=== PATIENT | female | born 1960 | race Caucasian/White ===

== ENCOUNTER → 2016-08-29 | Outpatient (CLI) | payer OTHER ==
--- NOTE | 2016-08-29 15:52 | REPMRS ---
Patient History The patient states she has not had a clinical breast exam in over a year. Patient is postmenopausal. Family history of colorectal cancer in mother. Digital Woman Screen Mammo: August 29, 2016 - Exam #: [id number] Bilateral CC and MLO view(s) were taken. Technologist: Amanda Mckeon, Technologist Prior study comparison: October 31, 2012, digital bilateral screening mammo, performed at . October 14, 2010, digital bilateral screening mammo, performed at . FINDINGS: The breast tissue is heterogeneously dense. This may lower the sensitivity of mammography. There is a moderate amount of heterogeneously dense fibroglandular tissue which is fairly symmetric. There is no interval development of dominant mass, architectural distortion, or clustered microcalcification typical of malignancy. There has been no change in the appearance of the mammogram from the prior studies. ASSESSMENT: BI-RADS/ACR category 1 mammogram. Negative. Recommendation Routine screening mammogram of both breasts in 1 year (for women over age 40). This mammogram was interpreted with the aid of an FDA-approved computer-aided dectection system. Electronically Signed By: Andrews Bazan MD 08/29/16 [id number]
--- NOTE | 2016-08-31 10:01 | DEXA ---
AP SPINE L1 - L4 0.783 -3.3 -1.7 LT FEMUR TOTAL Fracture. RT FEMUR TOTAL 0.641 -2.9 -1.7 TOTAL BODY TOTAL OTHER DUAL FEMUR FRAX* ASSESSMENT Risk factors: History of left femur fracture, tobacco use. 10 year probability of fracture Major osteoporotic fracture 22 % Hip fracture 12.2 % COMMENTS: There is osteoporosis of the spine. There is osteoporosis of the right hip. Mild lumbar scoliosis. FOLLOW-UP: Recommendation for the next bone density exam: 2 years. BAILEY
== END ==
LOC: M WHC 13:08
PROVIDERS: ATTEND Internal Medicine
DX: Z12.31 Encounter for screening mammogram for malignant neoplasm of breast (principal); Z13.820 Encounter for screening for osteoporosis; M81.0 Age-related osteoporosis without current pathological fracture; M41.9 Scoliosis, unspecified; Z78.0 Asymptomatic menopausal state; Z80.0 Family history of malignant neoplasm of digestive organs
CPT/HCPCS: 77080; G0202

== ENCOUNTER → 2018-04-17 | Outpatient (REF) | payer OTHER ==
[2018-04-19 00:06] LABS: ANA (HEP2) Positive (.); SSA SJOGRENS A <0.2 AI (0.0-0.9); SSB SJOGRENS B 5.8 AI (0.0-0.9)
== END ==
LOC: M SFHCPLAZ 09:10
PROVIDERS: ATTEND Internal Medicine Rheumatology
DX: R76.8 Other specified abnormal immunological findings in serum (principal); M25.50 Pain in unspecified joint

== ENCOUNTER 2018-06-30 07:36 | Inpatient (IN) | payer OTHER ==
[~2018-06-30] VITALS: Ht 149.9 cm; Wt 36.8 kg
[2018-06-30] MEDS ORDERED: PROAAER10 INH (07:44)
[2018-06-30] MEDS ORDERED: IBAN150T6 (07:44)
[2018-06-30] MEDS ORDERED: SERT-138 PO (07:44)
[2018-06-30] MEDS ORDERED: PRED20TA PO (07:44)
[2018-06-30] MEDS ORDERED: DOXY-346 PO (07:44)
[2018-06-30 08:28] LABS: BASO % 0.1 % (0.0-1.0); HEMATOCRIT 45.4 % (36.0-47.0); HEMOGLOBIN 14.8 g/dl (12.0-15.5); LYMPH # 1.2 10^3/uL (1.5-4.5); LYMPH % 11.3 % (24.0-44.0); MEAN CORPUSCULAR HEMOGLOBIN 29.4 pg (27.0-33.0); MEAN CORPUSCULAR HGB CONC 32.6 g/dl (32.0-36.5); MEAN CORPUSCULAR VOLUME 90.3 fl (80.0-96.0); NEUTROPHILS % 78.1 % (36.0-66.0); PLATELET COUNT, AUTOMATED 234 10^3/uL (150-450); RED BLOOD COUNT 5.03 10^6/uL (4.00-5.40); WHITE BLOOD COUNT 10.2 10^3/uL (4.0-10.0)
[2018-06-30] MEDS: IPRATROPIUM 0.5MG/ALBUTEROL 2.5MG INH SOL UD 3ML (DUONEB)(J7620) NEB PRN (08:46)
[2018-06-30 08:50] LABS: ALBUMIN 3.5 GM/DL (3.2-5.2); ALT/SGPT 13 U/L (12-78); BILIRUBIN,DIRECT < 0.1 MG/DL (0.0-0.2); BILIRUBIN,TOTAL 0.4 MG/DL (0.2-1.0); BLOOD UREA NITROGEN 10 MG/DL (7-18); CALCIUM LEVEL 8.6 MG/DL (8.5-10.1); CARBON DIOXIDE LEVEL 29 MEQ/L (21-32); CHLORIDE LEVEL 103 MEQ/L (98-107); CPK CREATINE PHOSPHOKINASE 82 U/L (26-192); CREATININE FOR GFR 0.54 MG/DL (0.55-1.30); GLOMERULAR FILTRATION RATE > 60.0 (>51); GLUCOSE, FASTING 114 MG/DL (70-100); LIPASE 93 U/L (73-393); MB/CK RELATIVE INDEX 2.68 (< OR =4); POTASSIUM SERUM 3.3 MEQ/L (3.5-5.1); SODIUM LEVEL 140 MEQ/L (136-145); TOTAL PROTEIN 7.2 GM/DL (6.4-8.2); TROPONIN I < 0.02 NG/ML (< 0.10)
[2018-06-30 08:51] LABS: INFLUENZA A AMPLIFICATION NEGATIVE (NEGATIVE); INFLUENZA B AMPLIFICATION NEGATIVE (NEGATIVE)
--- NOTE | 2018-06-30 08:57 | REP ---
Clinical: Shortness of breath. Technique: AP and lateral. Comparison: 11/07/2011. Findings: Chronic COPD/emphysematous disease with bibasilar scarring and interstitial changes again appreciated. No acute consolidation, effusion, or pneumothorax. Mediastinum and cardiac silhouette normal. Skeletal structures stable. Impression: COPD and chronic changes. No acute cardiopulmonary process appreciated. Electronically Signed by Tahir Flores MD 06/30/2018 08:49 A
[2018-06-30] MEDS ORDERED: NS 500 ML IV ONE (09:15)
[2018-06-30] MEDS ORDERED: methylPREDNISolone INJ 125 MG/2 ML VIAL (J2930) IV ONE (09:30)
[2018-06-30] MEDS ORDERED: IPRATROPIUM 0.5MG/ALBUTEROL 2.5MG INH SOL UD 3ML (DUONEB)(J7620) NEB PRN (10:30)
[2018-06-30] MEDS ORDERED: MOM 30ML SUSPENSION UDC PO PRN (10:30)
--- NOTE | 2018-06-30 10:40 | HPEPDOC ---
General Date of Admission Primary Care Physician: LORIE COOPER DO Attending Physician: NICO GARCIA MD Chief Complaint The patient is a 57-year-old female admitted with a reason for visit of SOB. Exam Limitations: No limitations Timing/Duration: Day(s) (2 days) Severity: Severe Associated Symptoms: Cough, Shortness of breath History of Present Illness This 57 years old white female with past medical history of COPD, active smoker, history of anxiety and depression, presented with increasing shortness of breath since last 2 days. Patient was seen and evaluated in the ER she was given 2 nebulizer treatment with some relief and will recall to admit patient for observation Patient feels slightly better but still has the shortness of breath. Patient stopped smoking about 2 days ago No chest pain, nausea, vomiting, diarrhea or syncopal symptoms Home Medications Scheduled (Doxycycline) 100 Mg Tab, 100 MG PO BID, (Reported) FILLED 06/29/18 FOR 10 DAYS Prednisone (Prednisone) 20 Mg Tab, 20 MG PO BID, (Reported) FILLED 06/29/18 FOR 9 DAYS Sertraline HCl (Sertraline HCl) 100 Mg Tab, 100 MG PO DAILY, (Reported) Scheduled PRN Albuterol Sulfate (Proair Hfa) 108 Mcg/Act Aer, 2 PUFF INH Q4H PRN for SHORTNESS OF BREATH, (Reported) Allergies Coded Allergies: acetaminophen (Verified Allergy, Unknown, 06/30/18) bupropion (Verified Allergy, Unknown, 06/30/18) codeine (Verified Allergy, Unknown, 06/30/18) hydrocodone (Verified Allergy, Unknown, 06/30/18) Past Medical History Medical History COPD, anxiety and depression Surgical History None Family History Significant Family History: COPD Social History * Smoker: current smoker, greater than 1 pack/day, cigarettes Alcohol: Denies Drugs: denies Review of Systems Constitutional: Denies: Chills, Fever, Night Sweats Eyes: Denies: Pain, Vision change ENT: Denies: Head Aches, Ear Pain, Dysphagia Skin: Denies: Rash, Lesions, Breakdown Pulmonary: Reports: Dyspnea, Cough Cardiovascular: Denies: Chest Pain, Palpitations, Orthopnea, Paroxysmal Noc. Dyspnea, Lt Headedness Gastrointestinal: Denies: Nausea, Vomiting, Abdominal Pain, Diarrhea Genitourinary: Denies: Dysuria, Frequency, Incontinence, Retention Hematologic: Denies: Bruising, Bleeding Excessively Musculoskeletal: Denies: Neck Pain, Back Pain, Joint Pain, Muscle Pain, Spasms Neurological: Denies: Weakness, Numbness, Change in speech, Confusion Psych: Reports: Mood Normal; Denies: Depression, Memory Issues Physical Examination General Exam: Positive: Alert, No Acute Distress Eye Exam: Positive: PERRLA, Conjunctiva & lids normal, EOMI; Negative: Sclera icteric ENT Exam: Positive: Atraumatic, Mucous membr. moist/pink, Pharynx Normal Neck Exam: Positive: Supple; Negative: JVD, thyromegaly Chest Exam: Positive: Wheezing Heart Exam: Positive: Rate Normal, Regular Rhythm, Normal S1, Normal S2; Negative: Murmurs, Rubs Telemetry: Positive: No significant arrhythmia Abdomen Exam: Positive: Normal bowel sounds, Soft; Negative: Tenderness, Hepatospenomegaly Extremity Exam: Positive: Normal pulses; Negative: Clubbing, Cyanosis, Edema Skin Exam: Positive: Nl turgor and temperature; Negative: Breakdown, Lesion Neuro Exam: Positive: Normal Gait, Normal Speech, Cranial Nerves 3-12 NL, Reflexes 2+ Psych Exam: Positive: Mental status NL, Mood NL, Oriented x 3 Vital Signs Vital Signs Date Time Temp Pulse Resp B/P (MAP) Pulse Ox O2 Delivery O2 Flow Rate FiO2 06/30/18 08:20 06/30/18 08:18 Room Air 06/30/18 07:46 90 06/30/18 07:36 98.2 91 20 Laboratory Data Labs 24H Laboratory Tests 2 06/30/18 08:10: Immature Granulocyte % (Auto) 0.5, White Blood Count 10.2H, Red Blood Count 5.03, Hemoglobin 14.8, Hematocrit 45.4, Mean Corpuscular Volume 90.3, Mean Corpuscular Hemoglobin 29.4, Mean Corpuscular Hemoglobin Concent 32.6, Red Cell Distribution Width 13.7, Platelet Count 234, Neutrophils (%) (Auto) 78.1H, Lymphocytes (%) (Auto) 11.3L, Monocytes (%) (Auto) 10.0H, Eosinophils (%) (Auto) 0.0, Basophils (%) (Auto) 0.1, Neutrophils # (Auto) 8.0H, Lymphocytes # (Auto) 1.2L, Monocytes # (Auto) 1.0H, Eosinophils # (Auto) 0.0, Basophils # (Auto) 0.0, Nucleated Red Blood Cells % (auto) 0.0, Anion Gap 8, Glomerular Filtration Rate > 60.0, Calcium Level 8.6, Aspartate Amino Transf (AST/SGOT) 12, Alanine Aminotransferase (ALT/SGPT) 13, Alkaline Phosphatase 70, Total Bilirubin 0.4, Direct Bilirubin < 0.1, Total Creatine Kinase 82, Creatine Kinase MB 2.0, Creatine Kinase MB Relative Index 2.68, Troponin I < 0.02, Total Protein 7.2, Albumin 3.5, Albumin/Globulin Ratio 0.95L, Lipase 93, Influenza Type A (RT-PCR) NEGATIVE, Influenza Type B (RT-PCR) NEGATIVE, Respiratory Syncytial Virus (RT-PCR NEGATIVE CBC/BMP Laboratory Tests 06/30/18 08:10 Red Blood Count 5.03, Mean Corpuscular Volume 90.3, Mean Corpuscular Hemoglobin 29.4, Mean Corpuscular Hemoglobin Concent 32.6, Red Cell Distribution Width 13.7, Neutrophils (%) (Auto) 78.1 H, Lymphocytes (%) (Auto) 11.3 L, Monocytes (%) (Auto) 10.0 H, Eosinophils (%) (Auto) 0.0, Basophils (%) (Auto) 0.1, Neutrophils # (Auto) 8.0 H, Lymphocytes # (Auto) 1.2 L, Monocytes # (Auto) 1.0 H, Eosinophils # (Auto) 0.0, Basophils # (Auto) 0.0 Microbiology Microbiology 06/30/18 Blood Culture, Received Pending Problems (1) COPD exacerbation Status: Acute Response to Treatment: Improving Problem Text: 57 years old white female with past medical history History of COPD, anxiety disorder and depression, admitted for observation secondary to exacerbation of COPD Admit patient to med unit for observation Patient did receive 1 dose of IV steroids and 2 nebulizer treatments in ED Start Solu-Medrol 40 mg IV every 8 hours Start nebulizer DuoNeb every 4 hours and every 2 hours as needed Will also give him Zithromax 500 mg by mouth daily for 3 days for possible acute bronchitis Extensive smoking cessation counseling was done and patient understands very well and understands all the risks if she continues to smoke Continue home medications DVT prophylaxis with Lovenox Possible DC name of, clinically stable Plan / VTE VTE Prophylaxis Ordered?: Yes JOSE,NICO MD Jun 30, 2018 10:40
[2018-06-30] MEDS: IPRATROPIUM 0.5MG/ALBUTEROL 2.5MG INH SOL UD 3ML (DUONEB)(J7620) NEB SCH ×2 (11:23→20:00)
[2018-06-30 13:00] VITALS: BP 136/82
[2018-06-30] MEDS: methylPREDNISolone INJ 40 MG/1 ML VIAL (J2920) IV SCH (16:33)
[2018-06-30] MEDS: AZITHROMYCIN 250 MG TAB PO SCH (16:34)
[2018-06-30] MEDS: ENOXAPARIN 40 MG/0.4 ML SYRINGE (J1650) SC SCH (16:34)
[2018-06-30] MEDS: SERTRALINE 100 MG TAB PO SCH (16:34)
[2018-06-30] MEDS ORDERED: ONDANSETRON 4MG/2ML VIAL (J2405) IV PRN (18:45)
[2018-06-30] MEDS: ACETAMINOPHEN TAB 650MG DOSE (2X325MG) PO PRN (19:00)
[2018-06-30 22:00] VITALS: BP 106/59
[2018-07-01] MEDS: methylPREDNISolone INJ 40 MG/1 ML VIAL (J2920) IV SCH ×3 (00:44→16:33)
[2018-07-01] MEDS: IPRATROPIUM 0.5MG/ALBUTEROL 2.5MG INH SOL UD 3ML (DUONEB)(J7620) NEB SCH ×8 (04:42→23:34)
[2018-07-01 06:00] VITALS: BP 120/72
[2018-07-01 06:03] LABS: HEMATOCRIT 45.5 % (36.0-47.0); HEMOGLOBIN 14.2 g/dl (12.0-15.5); MEAN CORPUSCULAR HEMOGLOBIN 28.5 pg (27.0-33.0); MEAN CORPUSCULAR HGB CONC 31.2 g/dl (32.0-36.5); MEAN CORPUSCULAR VOLUME 91.4 fl (80.0-96.0); PLATELET COUNT, AUTOMATED 240 10^3/uL (150-450); RED BLOOD COUNT 4.98 10^6/uL (4.00-5.40); WHITE BLOOD COUNT 8.4 10^3/uL (4.0-10.0)
[2018-07-01 06:30] LABS: ALBUMIN 3.4 GM/DL (3.2-5.2); ALT/SGPT 17 U/L (12-78); BILIRUBIN,TOTAL 0.3 MG/DL (0.2-1.0); BLOOD UREA NITROGEN 17 MG/DL (7-18); CALCIUM LEVEL 8.4 MG/DL (8.5-10.1); CARBON DIOXIDE LEVEL 30 MEQ/L (21-32); CHLORIDE LEVEL 106 MEQ/L (98-107); CREATININE FOR GFR 0.44 MG/DL (0.55-1.30); GLOMERULAR FILTRATION RATE > 60.0 (>51); GLUCOSE, FASTING 124 MG/DL (70-100); MAGNESIUM LEVEL 2.3 MG/DL (1.8-2.4); POTASSIUM SERUM 3.8 MEQ/L (3.5-5.1); SODIUM LEVEL 142 MEQ/L (136-145); TOTAL PROTEIN 6.4 GM/DL (6.4-8.2)
[2018-07-01] MEDS: ACETAMINOPHEN TAB 650MG DOSE (2X325MG) PO PRN (10:02)
[2018-07-01] MEDS: SERTRALINE 100 MG TAB PO SCH (10:02)
[2018-07-01] MEDS: AZITHROMYCIN 250 MG TAB PO SCH (10:02)
[2018-07-01] MEDS: ENOXAPARIN 40 MG/0.4 ML SYRINGE (J1650) SC SCH (10:03)
--- NOTE | 2018-07-01 11:43 | REP ---
Clinical: Shortness of breath. Congestion. Comparison: 06/30/2018, 11/07/2011. Findings: Advanced COPD/emphysematous changes are appreciated. No acute consolidation, effusion, or pneumothorax. Mediastinum and cardiac silhouette are normal. Skeletal structures are intact. Impression: Advanced COPD and emphysematous changes appear stable. Electronically Signed by Tahir Flores MD 07/01/2018 11:35 A
[2018-07-01 12:25] LABS: ABG BASE EXCESS 1.3 (-2.0-2.0); ABG HCO3 27.5 MEQ/L (22.0-26.0); ABG O2 SATURATION 97.3 % (95.0-99.0); ABG PARTIAL PRESSURE CO2 49.5 mmHg (35.0-45.0); ABG STANDARD HCO3 25.6 MEQ/L (22.0-26.0); ABG pH (ARTERIAL) 7.363 UNITS (7.350-7.450)
[2018-07-01] MEDS: LevoFLOXacin IV 750 MG in APPROPRIATE DILUENT 1 EA IV SCH (12:53)
--- NOTE | 2018-07-01 13:36 | IPNPDOC ---
Date Seen The patient was seen on 07/01/18. Progress Note SUBJECTIVE: This 57 years old white female with past medical history of COPD, active smoker, history of anxiety and depression, presented with increasing shortness of breath since last 2 days. She was admitted for COPD exacerbation. When I saw her this morning, she was very sob, using abd muscles, on 2NC but saturating in the 90s, coughing but unable to expectorate, said she is feeling feverish with intermittent chills, however rectal temp was wnl. She received azithromycin, and iv steroid this morning already. OBJECTIVE PHYSICAL EXAMINATION: VITAL SIGNS: Please see below. Physical exam Gen: cachetic , with mild- mod resp distress, HEENT: normocephalic, atraumatic, no discharge from ears or nose, no oropharyngeal erythema or exudate, neck is supple, no lymphadenopathy, trachea midline CVS: RRR, normal S1n S2, no murmur, rubs, or gallops, no edema, no jvd Resp: LCTAB, no rhonchi, b/l diffuse wheezes, no crackles Abd : soft nontender, normal bowel sounds, no rebound tenderness or guarding MSK: no swelling, full range of motion, strength 5/5 Neuro: AOAx3, no confusion, no focal deficit Psych: normal mood and affect, good judgment LABORATORY DATA, IMAGING STUDIES, MICROBIOLOGY: Please see below.- reviewed ASSESSMENT AND PLAN: copd exacerbation 2/2 parainfluenza virus with possible underlying pna resp panel positive for parainflunzxa 3 - contact precautions ordered sputum gs and cx growing some bacteria - will f/u repeat cxr - no inflitrate or consolidation, but if patient c/w to be very sob will get ct chest c/w Solu-Medrol 40 mg IV every 8 hours c/w nebulizer DuoNeb every 4 hours standing and every 2 hours as needed dc zithromax 500 mg and start levaquin 750mg daily for 7 days - day 1 Extensive smoking cessation counseling was done and patient understands very well and understands all the risks if she continues to smoke restart advair abg - shows mild co2 retention and adequate oxygenation on 2L NC no need for lasix, patient looks dry and lungs without crackles troponin and ckmb are negative will monitor patient for signs of resp fatigue and consider bipap for tachypnea Depression Continue home medications DVT prophylaxis with Lovenox GI ppx patient wants to be dnr/dni - DISPOSITION: guarded VS, I&O, 24H, [place] Vital Signs/I&O Vital Signs Date Time Temp Pulse Resp B/P (MAP) Pulse Ox O2 Delivery O2 Flow Rate FiO2 07/01/18 06:00 97.8 73 18 120/72 (88) 95 2.0 06/30/18 12:44 Nasal Cannula I&O- Last 24 Hours up to 6 AM 07/01/18 06:00 Intake Total 620 ml Output Total 0 ml Balance 620 ml Laboratory Data 24H LABS Laboratory Tests 2 07/01/18 05:44: Nucleated Red Blood Cells % (auto) 0.0, Anion Gap 6L, Glomerular Filtration Rate > 60.0, Blood Urea Nitrogen 17#, Creatinine 0.44L, Sodium Level 142, Potassium Level 3.8, Chloride Level 106, Carbon Dioxide Level 30, Calcium Level 8.4L, Aspartate Amino Transf (AST/SGOT) 20, Alanine Aminotransferase (ALT/SGPT) 17, Alkaline Phosphatase 64, Total Bilirubin 0.3, Total Protein 6.4, Albumin 3.4, Magnesium Level 2.3, Albumin/Globulin Ratio 1.13 07/01/18 12:12: Blood Gas Bicarbonate Standard 25.6, Arterial Blood pH 7.363, Arterial Blood Partial Pressure CO2 49.5H, Arterial Blood Partial Pressure O2 91.0, Arterial Blood Total CO2 29.0, Arterial Blood HCO3 27.5H, Arterial Blood Base Excess 1.3, Arterial Blood Oxygen Saturation 97.3 CBC/BMP Laboratory Tests 07/01/18 05:44 Red Blood Count 4.98, Mean Corpuscular Volume 91.4, Mean Corpuscular Hemoglobin 28.5, Mean Corpuscular Hemoglobin Concent 31.2 L, Red Cell Distribution Width 13.7, Calcium Level 8.4 L, Aspartate Amino Transf (AST/SGOT) 20, Alanine Aminotransferase (ALT/SGPT) 17, Alkaline Phosphatase 64, Total Bilirubin 0.3, Total Protein 6.4, Albumin 3.4 Microbiology Microbiology 06/30/18 Blood Culture - Preliminary, Resulted No growth after 24 hours . All specim... 07/01/18 Respiratory Virus Panel (PCR) (JUDY) - Final, Complete Parainfluenza 3 (Piv3) 07/01/18 Gram Stain - Final, Resulted 07/01/18 Sputum Culture, Resulted Pending PREETI BETHEA MD Jul 01, 2018 13:36
[2018-07-01 22:00] VITALS: BP 117/65
[2018-07-02] MEDS: methylPREDNISolone INJ 40 MG/1 ML VIAL (J2920) IV SCH ×3 (00:26→16:08)
[2018-07-02] MEDS: IPRATROPIUM 0.5MG/ALBUTEROL 2.5MG INH SOL UD 3ML (DUONEB)(J7620) NEB SCH ×6 (04:00→23:34)
--- NOTE | 2018-07-02 05:34 | ECGEPIP ---
Stationary ECG Study [facility] - ED Test Date: 2018-06-30 Pat Name: RUBÉN DOMINGUEZ Department: Room: - Gender: F Distribution Clerk: : 1960 Requested By: HANNAH POWELL Order Number: [id number] Reading MD: Garett Soto Measurements Intervals [place] Rate: 79 P: -31 SC: 95 QRS: 86 QRSD: 122 T: 33 QT: 410 QTc: 473 Interpretive Statements SINUS RHYTHM WITH SHORT SC INTERVAL RIGHT AXIS DEVIATION RIGHT BUNDLE BRANCH BLOCK SIMILAR TO 11/07/11 Electronically Signed On 07-02-2018 5:33:52 EDT by Garett Soto
[2018-07-02 06:00] VITALS: BP 114/62
[2018-07-02 06:18] LABS: HEMATOCRIT 44.9 % (36.0-47.0); HEMOGLOBIN 14.2 g/dl (12.0-15.5); MEAN CORPUSCULAR HEMOGLOBIN 28.7 pg (27.0-33.0); MEAN CORPUSCULAR HGB CONC 31.6 g/dl (32.0-36.5); MEAN CORPUSCULAR VOLUME 90.9 fl (80.0-96.0); PLATELET COUNT, AUTOMATED 247 10^3/uL (150-450); RED BLOOD COUNT 4.94 10^6/uL (4.00-5.40)
[2018-07-02 06:41] LABS: BLOOD UREA NITROGEN 17 MG/DL (7-18); CALCIUM LEVEL 8.5 MG/DL (8.5-10.1); CARBON DIOXIDE LEVEL 33 MEQ/L (21-32); CHLORIDE LEVEL 104 MEQ/L (98-107); CREATININE FOR GFR 0.52 MG/DL (0.55-1.30); GLOMERULAR FILTRATION RATE > 60.0 (>51); GLUCOSE, FASTING 125 MG/DL (70-100); MAGNESIUM LEVEL 2.2 MG/DL (1.8-2.4); PHOSPHORUS LEVEL 3.2 MG/DL (2.5-4.9); POTASSIUM SERUM 3.4 MEQ/L (3.5-5.1); SODIUM LEVEL 141 MEQ/L (136-145)
[2018-07-02] MEDS ORDERED: POTASSIUM CHLORIDE 10 MEQ SR TABLET PO ONE (08:00)
[2018-07-02] MEDS: SERTRALINE 100 MG TAB PO SCH (08:44)
[2018-07-02] MEDS: ENOXAPARIN 40 MG/0.4 ML SYRINGE (J1650) SC SCH (08:45)
[2018-07-02] MEDS: ACETAMINOPHEN TAB 650MG DOSE (2X325MG) PO PRN (08:45)
[2018-07-02] MEDS: LevoFLOXacin IV 750 MG in APPROPRIATE DILUENT 1 EA IV SCH (12:41)
[2018-07-02 14:00] VITALS: BP 108/77
--- NOTE | 2018-07-02 17:57 | IPNPDOC ---
Date Seen The patient was seen on 07/02/18. Progress Note SUBJECTIVE: This 57 years old white female with past medical history of COPD, active smoker, history of anxiety and depression, presented with increasing shortness of breath since last 2 days. She was admitted for COPD exacerbation. She was initially started on azithromycin , but when I saw her yesterday she had increased work of breathing and diffused wheezing. Azithromycin was dc'ed and she was started on levaquin on 07/01, continued on iv methylpred 40mg q8h, and duoneb q4h prn, advair bid and supplemental oxygen. She also wanted to be dnr/dni, but with family at bedside and seemed surprised at her decision, I asked her to speak with them before making a decision. Her respiratory panel was positive for parainfluenza virus 3 an abg showed mild mild acute co2 retention. Reassessing her today 07/02, she looks a lot better. She denied any chest pain, said her cough and sob is much better and she now ambulating to the bathroom, but has sob more with exertion. Today patient and her agrees that she will be full code. I explained to them the importance of a HCP and his/her role. Patient expressed that she would like to be full code, but would not want to remain on a vent if she will not get better. OBJECTIVE PHYSICAL EXAMINATION: VITAL SIGNS: Please see below. Gen: cachetic , no resp distress, HEENT: normocephalic, atraumatic, no discharge from ears or nose, no oropharyngeal erythema or exudate, neck is supple, no lymphadenopathy, trachea midline CVS: RRR, normal S1n S2, no murmur, rubs, or gallops, no edema, no jvd Resp: LCTAB, no rhonchi, wheezes, no crackles Abd : soft nontender, normal bowel sounds, no rebound tenderness or guarding MSK: no swelling, full range of motion, strength 5/5 Neuro: AOAx3, no confusion, no focal deficit Psych: normal mood and affect, good judgment LABORATORY DATA, IMAGING STUDIES, MICROBIOLOGY: Please see below.- reviewed ASSESSMENT AND PLAN: copd exacerbation 2/2 parainfluenza virus 3 with possible underlying pna resp panel positive for parainflunzxa 3 - contact precautions ordered sputum gs and cx growing some bacteria - will f/u repeat cxr - no inflitrate or consolidation, taper Solu-Medrol 40 mg IV every 8 hours - to q12h c/w nebulizer DuoNeb every 4 hours standing and every 2 hours as needed - will de-escalate tomorrow c/w levaquin 750mg daily - day 2/7 days continues to encourage and reinforce the importance of smoking cessation and patient understands very well and understands all the risks if she continues to smoke c/w advair abg - shows mild co2 retention and adequate oxygenation on 2L NC no need for lasix, patient looks dry and lungs without crackles troponin and ckmb are negative Depression Continue home medications DVT prophylaxis with Lovenox GI ppx DISPOSITION: guarded VS, I&O, 24H, [place] Vital Signs/I&O Vital Signs Date Time Temp Pulse Resp B/P (MAP) Pulse Ox O2 Delivery O2 Flow Rate FiO2 07/02/18 14:00 97.8 100 18 108/77 (87) 95 2.0 06/30/18 12:44 Nasal Cannula I&O- Last 24 Hours up to 6 AM 07/02/18 05:59 Intake Total 1320 ml Output Total 0 ml Balance 1320 ml Laboratory Data 24H LABS Laboratory Tests 2 07/02/18 05:36: Nucleated Red Blood Cells % (auto) 0.0, Anion Gap 4L, Glomerular Filtration Rate > 60.0, Blood Urea Nitrogen 17, Creatinine 0.52L, Sodium Level 141, Potassium L evel 3.4L, Chloride Level 104, Carbon Dioxide Level 33H, Calcium Level 8.5, Phosphorus Level 3.2, Magnesium Level 2.2 CBC/BMP Laboratory Tests 07/02/18 05:36 Red Blood Count 4.94, Mean Corpuscular Volume 90.9, Mean Corpuscular Hemoglobin 28.7, Mean Corpuscular Hemoglobin Concent 31.6 L, Red Cell Distribution Width 13.5, Calcium Level 8.5 Microbiology Microbiology 06/30/18 Blood Culture - Preliminary, Resulted No Growth after 48 hours. All Specime... 07/01/18 Respiratory Virus Panel (PCR) (JUDY) - Final, Complete Parainfluenza 3 (Piv3) 07/01/18 Gram Stain - Final, Resulted 07/01/18 Sputum Culture, Resulted Pending PREETI BETHEA MD Jul 02, 2018 17:57
[2018-07-02 22:00] VITALS: BP 164/83
[2018-07-03] MEDS: methylPREDNISolone INJ 40 MG/1 ML VIAL (J2920) IV SCH ×3 (01:09→16:41)
[2018-07-03] MEDS: IPRATROPIUM 0.5MG/ALBUTEROL 2.5MG INH SOL UD 3ML (DUONEB)(J7620) NEB SCH ×6 (03:38→23:52)
[2018-07-03 06:00] VITALS: BP 116/71
[2018-07-03] MEDS: ENOXAPARIN 40 MG/0.4 ML SYRINGE (J1650) SC SCH (09:00)
[2018-07-03] MEDS: SERTRALINE 100 MG TAB PO SCH (09:00)
[2018-07-03] MEDS: LevoFLOXacin IV 750 MG in APPROPRIATE DILUENT 1 EA IV SCH (12:28)
[2018-07-03] MEDS ORDERED: LEVA1TAB2 PO (13:11)
[2018-07-03 14:00] VITALS: BP 149/91
[2018-07-03] MEDS ORDERED: PRED10TA2 PO (16:19)
[2018-07-03] MEDS ORDERED: ADV250INH INH (16:21)
--- NOTE | 2018-07-03 16:23 | DS.PDOC ---
Discharge Summary General Date of Admission Jul 01, 2018 at 19:12 Date of Discharge 07/03/18 Discharge Summary PROCEDURES PERFORMED DURING STAY: [None]. ADMITTING DIAGNOSES: 1. [COPD EXACERBATION ]. DISCHARGE DIAGNOSES: 1. COPD EXACERBATION COMPLICATIONS/CHIEF COMPLAINT: Copd Exacerbation. HISTORY OF PRESENT ILLNESS: This 57 years old white female with past medical history of COPD, active smoker, history of anxiety and depression, presented with increasing shortness of breath since last 2 days. Patient was seen and evaluated in the ER she was given 2 nebulizer treatment with some relief and will recall to admit patient for observation Patient feels slightly better but still has the shortness of breath. Patient stopped smoking about 2 days ago No chest pain, nausea, vomiting, diarrhea or syncopal symptoms HOSPITAL COURSE: This 57 years old white female with past medical history of COPD, active smoker, history of anxiety and depression, presented with increasing shortness of breath since last 2 days. She was admitted for COPD exacerbation. She was initially started on azithromycin , but when I saw her yesterday she had increased work of breathing and diffused wheezing. Azithromycin was dc'ed and she was started on levaquin on 07/01, continued on iv methylpred 40mg q8h, and duoneb q4h prn, ad vair bid and supplemental oxygen. By the next day, patient was doing much better but was still short of breath with minimal exertion. Her respiratory panel was positive for parainfluenza virus 3 an abg showed mild mild acute co2 retention. Her sputum did not grow any bacteria. Today is doing very well, saturating at 91% on room air, but failed 6 minute walk test to oxygen saturation of 83% at 3-4 mins. Patient's vital signs are otherwise stable and her physical exam was within normal limit. Patient is stable for discharge today on home oxygen 2 liters nc. She will be discharged on prednisone taper, levaquin for a completion of 5 days , adviar 250/50 1 puff bid and pro air (home meds) 2 puffs q4h prn. Her home dose of prednisone was discontinued as well as her doxycyline. Patient should f/u with her pmd and be evaluated by a coal miner in 1-2 weeks after discharge. DISCHARGE MEDICATIONS: Please see below. ALLERGIES: Please see below. PHYSICAL EXAMINATION ON DISCHARGE: VITAL SIGNS: Please see below. Gen: NAD, healthy appearing , HEENT: normocephalic, atraumatic, no discharge from ears or nose, no oropharyngeal erythema or exudate, neck is supple, no lymphadenopathy, trachea midline CVS: RRR, normal S1n S2, no murmur, rubs, or gallops, no edema, no jvd Resp: LCTAB, no rhonchi, wheezes or crackles Abd : soft nontender, normal bowel sounds, no rebound tenderness or guarding MSK: no swelling, full range of motion, strength 5/5 Neuro: AOAx3, no confusion, no focal deficit Psych: normal mood and affect, good judgment LABORATORY DATA: Please see below. IMAGING: [facility] NAME: RUBÉN DOMINGUEZ DATE OF : 1960 AGE: 57 SEX: F REPORT #: [id number] ROOM: ED TECHNOLOGIST: JOVANNA DOCTOR: HANNAH POWELL DO Ordered for Date&Time: 06/30/18823 cc: [~ rep ct ivnm] Service Date&Time: This report is in Signed status. If this report is in a DRAFT status it has not yet been reviewed by the radiologist for accuracy. Thank you for having your radiology procedures performed at [facility] RADIOLOGY REPORT Date&Time printed: [~ rep prt dt last] [~ rep prt tm last] Page 1 of 1 [place] [address] RADIOLOGY REPORT This report is in Signed status. If this report is in a DRAFT status it has not yet been reviewed by the radiologist for accuracy. Thank you for having your radiology procedures performed at [facility] RADIOLOGY REPORT Date&Time printed: [~ rep prt dt last] [~ rep prt tm last] Page 1 of 1 NAME: RUBÉN DOMINGUEZ DATE OF : 1960 AGE: 57 SEX: F REPORT #: [id number] ROOM: ED TECHNOLOGIST: JOVANNA DOCTOR: HANNAH POWELL DO Ordered for Date&Time: 06/30/18823 cc: [~ rep ct ivnm] Service Date&Time: EXAMINATION REQUESTED: Chest, 2 view PA, Lat REASON FOR PATIENT VISIT: SOB REASON FOR EXAM/COMMENT: SOB Clinical: Shortness of breath. Technique: AP and lateral. Comparison: 11/07/2011. Findings: Chronic COPD/emphysematous disease with bibasilar scarring and interstitial changes again appreciated. No acute consolidation, effusion, or pneumothorax. Mediastinum and cardiac silhouette normal. Skeletal structures stable. Impression: COPD and chronic changes. No acute cardiopulmonary process appreciated. Electronically Signed by Tahir Flores MD 06/30/2018 08:49 A DD: Tahir Flores MD 06/30/18847 8 DS: WANDA 06/30/1849 06/30/18848 [~ rep ct labl] [facility] NAME: RUBÉN DOMINGUEZ DATE OF : 1960 AGE: 57 SEX: F REPORT #: [id number] ROOM: [address] TECHNOLOGIST: [facility] DOCTOR: PREETI BETHEA MD Ordered for Date&Time: 07/01/18 1110 cc: [~ rep ct ivnm] Service Date&Time: This report is in Signed status. If this report is in a DRAFT status it has not yet been reviewed by the radiologist for accuracy. Thank you for having your radiology procedures performed at [facility] RADIOLOGY REPORT Date&Time printed: [~ rep prt dt last] [~ rep prt tm last] Page 1 of 1 [place] [address] RADIOLOGY REPORT This report is in Signed status. If this report is in a DRAFT status it has not yet been reviewed by the radiologist for accuracy. Thank you for having your radiology procedures performed at [facility] RADIOLOGY REPORT Date&Time printed: [~ rep prt dt last] [~ rep prt tm last] Page 1 of 1 NAME: RUBÉN DOMINGUZE DATE OF : 1960 AGE: 57 SEX: F REPORT #: [id number] ROOM: [address] TECHNOLOGIST: BEV DOCTOR: PREETI BETHEA MD Ordered for Date&Time: 07/01/18 1110 cc: [~ rep ct ivnm] Service Date&Time: EXAMINATION REQUESTED: PORTABLE CHEST X-RAY REASON FOR PATIENT VISIT: COPD EXACERBATION REASON FOR EXAM/COMMENT: chest congestion Clinical: Shortness of breath. Congestion. Comparison: 06/30/2018, 11/07/2011. Findings: Advanced COPD/emphysematous changes are appreciated. No acute consolidation, effusion, or pneumothorax. Mediastinum and cardiac silhouette are normal. Skeletal structures are intact. Impression: Advanced COPD and emphysematous changes appear stable. Electronically Signed by Tahir Flores MD 07/01/2018 11:35 A DD: Tahir Flores MD 07/01/18 1134 DT: Nikita 07/01/18 1135 DS: WANDA 07/01/18 1135 07/01/18 1135 [~ rep ct labl] PROGNOSIS: GUARDED ACTIVITY: [As tolerated]. DIET: [COPD DIET ] DISCHARGE PLAN: HOME with self care DISCHARGE INSTRUCTIONS: 1. follow up with pmd in 1-2weeks. Consider a pulmologist for further wor up and management for copd DISCHARGE CONDITION: [Stable]. TIME SPENT ON DISCHARGE: Greater than [15] minutes. Vital Signs/I&Os Vital Signs Date Time Temp Pulse Resp B/P (MAP) Pulse Ox O2 Delivery O2 Flow Rate FiO2 07/03/18 14:00 98.9 98 18 149/91 (110) 95 07/03/18 08:00 2.0 06/30/18 12:44 Nasal Cannula I&O- Last 24 Hours up to 6 AM 07/03/18 05:59 Intake Total 1680 ml Output Total 0 ml Balance 1680 ml Microbiology Microbiology 06/30/18 Blood Culture - Preliminary, Resulted No Growth after 72 hours. All specime... 07/01/18 Respiratory Virus Panel (PCR) (JUDY) - Final, Complete Parainfluenza 3 (Piv3) 07/01/18 Gram Stain - Final, Complete 07/01/18 Sputum Culture - Final, Complete Yeast Like Organism Discharge Medications Scheduled Levofloxacin (Levaquin) 500 Mg Tablet, 500 MG PO DAILY Prednisone (Prednisone) 10 Mg Tablet, 10 MG PO TAPER Take 4 tabs daily x 3 days, then 3 tabs daily x 3 days, then 2 tabs daily x 3 days, then 1 tab daily x 3 days and stop Salmeterol/Fluticasone (Advair 250-50 Diskus) 1 Each Blst.w.dev, 1 PUFF INH BID Sertraline HCl (Sertraline HCl) 100 Mg Tab, 100 MG PO DAILY, (Reported) Scheduled PRN Albuterol Sulfate (Proair Hfa) 108 Mcg/Act Aer, 2 PUFF INH Q4H PRN for SHORTNESS OF BREATH, (Reported) Allergies Coded Allergies: bupropion (Verified Allergy, Unknown, 06/30/18) codeine (Verified Allergy, Unknown, 06/30/18) hydrocodone (Verified Allergy, Unknown, 06/30/18) PREETI BETHEA MD Jul 03, 2018 16:22
[2018-07-03 22:00] VITALS: BP 126/68
[2018-07-04] MEDS: methylPREDNISolone INJ 40 MG/1 ML VIAL (J2920) IV SCH ×2 (01:25→09:21)
[2018-07-04] MEDS: IPRATROPIUM 0.5MG/ALBUTEROL 2.5MG INH SOL UD 3ML (DUONEB)(J7620) NEB SCH ×4 (03:42→16:00)
[2018-07-04 06:00] VITALS: BP 122/62
[2018-07-04] MEDS: SERTRALINE 100 MG TAB PO SCH (09:21)
[2018-07-04] MEDS: ENOXAPARIN 40 MG/0.4 ML SYRINGE (J1650) SC SCH (09:22)
[2018-07-04] MEDS: LevoFLOXacin IV 750 MG in APPROPRIATE DILUENT 1 EA IV SCH (12:12)
[2018-07-04 14:00] VITALS: BP 133/87
--- NOTE | 2018-07-04 14:05 | IPNPDOC ---
Subjective Date Seen The patient was seen on 07/04/18. Subjective Chief Complaint/HPI Patient was reportedly discharged yesterday as she did not have oxygen set up and I was asked to speak to the patient and write a script for oxygen. Saturations did drop into the 80s on room air with walking. 1L home O2 was writt en. Spoke to patient and at bedside, answer all questions. Patient still has mild wheezing on auscultation but reported that she feels she is close to her baseline at home and is ready to go home. Objective Physical Examination General Exam: Positive: Alert, No Acute Distress Eye Exam: Positive: PERRLA, Conjunctiva & lids normal, EOMI; Negative: Sclera icteric ENT Exam: Positive: Atraumatic, Mucous membr. moist/pink, Pharynx Normal Neck Exam: Positive: Supple; Negative: JVD, thyromegaly Chest Exam: Positive: Wheezing Heart Exam: Positive: Rate Normal, Regular Rhythm, Normal S1, Normal S2; Negative: Murmurs, Rubs Telemetry: Positive: No significant arrhythmia Abdomen Exam: Positive: Normal bowel sounds, Soft; Negative: Tenderness, Hepatospenomegaly Extremity Exam: Positive: Normal pulses; Negative: Clubbing, Cyanosis, Edema Skin Exam: Positive: Nl turgor and temperature; Negative: Breakdown, Lesion Neuro Exam: Positive: Normal Gait, Normal Speech, Cranial Nerves 3-12 NL, Reflexes 2+ Psych Exam: Positive: Mental status NL, Mood NL, Oriented x 3 Assessment /Plan Plan/VTE VTE Prophylaxis Ordered?: Yes VS, I&O, 24H, Fishbone Vital Signs/I&O Vital Signs Date Time Temp Pulse Resp B/P (MAP) Pulse Ox O2 Delivery O2 Flow Rate FiO2 07/04/18 13:25 96 1.0 07/04/18 07:54 89 07/04/18 06:00 98.4 18 122/62 (82) 06/30/18 12:44 Nasal Cannula I&O- Last 24 Hours up to 6 AM 07/04/18 06:00 Intake Total 1750 ml Balance 1750 ml Laboratory Data Microbiology Microbiology 06/30/18 Blood Culture - Preliminary, Resulted No Growth after 72 hours. All specime... 07/01/18 Respiratory Virus Panel (PCR) (JUDY) - Final, Complete Parainfluenza 3 (Piv3) 07/01/18 Gram Stain - Final, Complete 07/01/18 Sputum Culture - Final, Complete Yeast Like Organism PERLA JOYCE MD Jul 04, 2018 14:05
== END 2018-07-04 16:30 | disposition home health service (06) | DRG 140 ==
LOC: M ED 07:36 → M ED INP 10:27 → M MS5PR 13:00 → OBSVTOIN 07-01 19:12
PROVIDERS: ADMIT Internal Medicine; ATTEND Internal Medicine
DX: J44.0 Chronic obstructive pulmonary disease with (acute) lower respiratory infection (principal); F32.9 Major depressive disorder, single episode, unspecified; F41.9 Anxiety disorder, unspecified; F17.210 Nicotine dependence, cigarettes, uncomplicated; J44.1 Chronic obstructive pulmonary disease with (acute) exacerbation; J20.9 Acute bronchitis, unspecified; Z79.899 Other long term (current) drug therapy; Z88.5 Allergy status to narcotic agent; Z79.52 Long term (current) use of systemic steroids; Z88.6 Allergy status to analgesic agent; Z88.8 Allergy status to other drugs, medicaments and biological substances; B34.8 Other viral infections of unspecified site

== ENCOUNTER → 2019-11-12 | Outpatient (REF) | payer OTHER ==
[~2019-11-12] MED LIST: ADV250INH INH; DOXY-346 PO; IBAN150T6; LEVA1TAB2 PO; PRED10TA2 PO; PRED20TA PO; PROAAER10 INH; SERT-138 PO
[2020-01-06 04:54] LABS: PHOSPHORUS LEVEL 3.5 MG/DL (2.5-4.9)
== END ==
LOC: M LAB REF 17:12
PROVIDERS: ATTEND Internal Medicine
DX: Z12.31 Encounter for screening mammogram for malignant neoplasm of breast (principal); M81.0 Age-related osteoporosis without current pathological fracture

== ENCOUNTER → 2019-11-29 | Outpatient (CLI) | payer OTHER ==
--- NOTE | 2019-12-24 13:03 | REP ---
LOW-DOSE SCREENING LUNG CT CLINICAL: History of nicotine dependence. COMPARISON: 12/10/2013. TECHNIQUE: Axial noncontrast images from the thoracic inlet to the upper abdomen using low-dose lung screening technique. FINDINGS: There is a 10 mm spiculated lesion in the periphery of the left upper lobe (Image 44), which represents a new finding as compared to 2014. Advanced chronic COPD/emphysematous changes are noted along with minimal bibasilar scarring. No effusion. No pneumothorax. Tracheobronchial tree demonstrates mild bronchiectasis. IMPRESSION: * Lung-RADS Category 4. * A 10-mm spiculated lesion in the left upper lobe. PET CT and/or biopsy are recommended as further evaluation. MTDD
== END ==
LOC: M RAD 07:51
PROVIDERS: ATTEND Internal Medicine
DX: F17.210 Nicotine dependence, cigarettes, uncomplicated (principal)

== ENCOUNTER → 2019-12-03 | Outpatient (CLI) | payer OTHER ==
--- NOTE | 2019-12-05 13:57 | REPMRS ---
Patient History The patient states she has not had a clinical breast exam in over a year. Family history of colorectal cancer in mother. 3D TOMOSYNTHESIS WAS PERFORMED. [facility] [place] Digital Woman Screen Mammo: December 03, 2019 - Exam #: [id number] Bilateral CC and MLO view(s) were taken. Technologist: Rita Valadez, Technologist Prior study comparison: August 29, 2016, digital woman screen mammo performed at [facility]. October 31, 2012, digital bilateral screening mammo, performed at [facility]. FINDINGS: The breast tissue is heterogeneously dense. This may lower the sensitivity of mammography. There has been no change in the appearance of the mammogram from the prior studies. There is a moderate amount of residual fibroglandular tissue which is fairly symmetric. There is no interval development of dominant mass, areas of architectural distortion, or clustered microcalcification typical of malignancy. Assessment: BI-RADS/ACR category 1 mammogram. Negative Mammogram. Recommendation Routine screening mammogram in 1 year (for women over age 40). This mammogram was interpreted with the aid of an FDA-approved computer-aided dectection system. Electronically Signed By: Michael Franklin MD 12/05/19 9615
--- NOTE | 2019-12-19 13:40 | DEXA ---
AP SPINE L1 - L4 0.765 -3.5 -2.5 LT FEMUR TOTAL LT NECK RT FEMUR TOTAL 0.659 -2.8 -2.0 RT NECK 0.620 -3.0 -1.9 TOTAL BODY TOTAL OTHER COMMENTS: There is osteoporosis of the spine. There is osteoporosis of the right hip. The density of the spine is decreased 2.3% since 08/29/2016. The density of the right hip has increased 2.8% since 08/29/2016. The decreased density of the spine does represent a significant change. The increased density of the right hip does represent significant change. FOLLOW-UP: Recommendation for the next bone density exam: 2 years. BAILEY
== END ==
LOC: M WHC 13:18
PROVIDERS: ATTEND Internal Medicine
DX: Z12.31 Encounter for screening mammogram for malignant neoplasm of breast (principal); M81.0 Age-related osteoporosis without current pathological fracture

== ENCOUNTER → 2019-12-04 | Outpatient (REF) | payer OTHER | LOC: M LAB REF 08:54 | PROVIDERS: ATTEND Internal Medicine | DX: Z12.31 Encounter for screening mammogram for malignant neoplasm of breast (principal) ==

== ENCOUNTER → 2019-12-17 | Outpatient (CLI) | payer OTHER ==
--- NOTE | 2019-12-26 07:32 | REP ---
PET/CT HISTORY: Solitary pulmonary nodule. Comparison chest CT study November 29, 2019, showed a new left upper lobe pulmonary nodule. TECHNIQUE: Forty-eight minutes following the intravenous injection of a 7.05 millicurie dose of F18 FDG, three dimensional PET/CT acquisition is performed from the skull base to the proximal thighs. PET/CT FINDINGS: The head and neck soft tissues are unremarkable. There is mildly hypermetabolic uptake in a healing rib fracture involving the anterior end of the fifth rib on the right side. Maximum standard uptake value is 3.25 in this healing fracture. No bony destructive lesion is seen here. There is visible but very faint and nonhypermetabolic accumulation of tracer in the spiculated nodule in the left upper lobe. Maximum standard uptake value is only 0.98. No other abnormal hypermetabolic uptake is seen in the chest. In the abdomen and pelvis, normal hepatic, splenic, gastrointestinal, and genitourinary FDG accumulation is observed. No abnormal hypermetabolic uptake is seen in the abdomen or pelvis. Advanced emphysematous changes are noted in the lungs as on recent CT study. IMPRESSION: The spiculated nodule recently identified in the left upper lobe shows faintly visible nonhypermetabolic uptake on FDG PET scintigraphy. This does not exclude malignancy. The lesion has suspicious morphology and by report is new from 2014 prior study. In addition, todays PET/CT study shows evidence of a healing fracture involving the anterior end of the fifth rib on the right side. MTDD
== END ==
LOC: M PLARAD 09:13
PROVIDERS: ATTEND Internal Medicine
DX: R91.1 Solitary pulmonary nodule (principal)
CPT/HCPCS: 78815; A9552

== ENCOUNTER → 2019-12-31 | Outpatient (REF) | payer OTHER ==
[2019-12-31 17:23] LABS: BASO % 0.4 % (0.0-1.0); EOS # 0.1 10^3/uL (0.0-0.5); EOS % 1.1 % (0.0-3.0); HEMATOCRIT 47.3 % (36.0-47.0); HEMOGLOBIN 14.8 g/dl (12.0-15.5); LYMPH # 2.2 10^3/uL (1.5-5.0); LYMPH % 29.8 % (24.0-44.0); MEAN CORPUSCULAR HEMOGLOBIN 28.5 pg (27.0-33.0); MEAN CORPUSCULAR HGB CONC 31.3 g/dl (32.0-36.5); MONO # 0.5 10^3/uL (0.0-0.8); MONO % 6.7 % (0.0-5.0); NEUTROPHILS # 4.5 10^3/uL (1.5-8.5); NEUTROPHILS % 61.6 % (36.0-66.0); PLATELET COUNT, AUTOMATED 236 10^3/uL (150-450); WHITE BLOOD COUNT 7.3 10^3/uL (4.0-10.0)
[2019-12-31 17:35] LABS: INR 0.9; PARTIAL THROMBOPLASTIN TIME 30.6 SECONDS (24.2-38.5); PROTHROMBIN TIME 12.4 SECONDS (12.5-14.3)
[2019-12-31 17:51] LABS: BLOOD UREA NITROGEN 12 MG/DL (7-18); CALCIUM LEVEL 9.1 MG/DL (8.5-10.1); CARBON DIOXIDE LEVEL 30 MEQ/L (21-32); CHLORIDE LEVEL 106 MEQ/L (98-107); CREATININE FOR GFR 0.58 MG/DL (0.55-1.30); GLOMERULAR FILTRATION RATE > 60.0 (>51); GLUCOSE, FASTING 81 MG/DL (70-100); POTASSIUM SERUM 5.5 MEQ/L (3.5-5.1); SODIUM LEVEL 139 MEQ/L (136-145)
== END ==
LOC: M LAB REF 16:53
PROVIDERS: ATTEND Internal Medicine Pulmonary Disease
DX: J44.9 Chronic obstructive pulmonary disease, unspecified (principal)

== ENCOUNTER → 2020-01-08 | Outpatient (CLI) | payer OTHER ==
--- NOTE | 2020-01-13 07:41 | REP ---
NON-CONTRAST CHEST CT: 01/08/20. CLINICAL: Follow-up solitary nodule. TECHNIQUE: Axial non-contrast images from the thoracic inlet to the upper abdomen with coronal and sagittal reformations. COMPARISON: 11/29/19. FINDINGS: Advanced COPD/emphysematous along with bibasilar scarring again noted and stable. Previously noted spiculated nodule in the left upper lobe has decreased in size and decreased in its solid component suggesting a small gradually resolving area of atelectasis. No further acute consolidation or suspicious nodule/mass lesion appreciated. No pleural effusion. No pneumothorax. Tracheobronchial tree is patent. Mediastinum demonstrates atherosclerotic changes to the thoracic aorta without aortic aneurysm or cardiomegaly. No pericardial effusion. No obvious adenopathy. Musculoskeletal structures are intact and without acute osseous abnormality. IMPRESSION: 1. Previously noted spiculated lesion in the left upper lobe appears resolving and likely represents a small area of regressing atelectasis. 2. Advanced COPD/emphysematous with bibasilar scarring unchanged. 3. No new acute mediastinal or pleuroparenchymal process appreciated. MTDD
== END ==
LOC: M RAD 08:13
PROVIDERS: ATTEND Internal Medicine Pulmonary Disease
DX: R91.1 Solitary pulmonary nodule (principal)

== ENCOUNTER → 2020-03-25 | Outpatient (CLI) | payer OTHER ==
[~2020-03-25] MED LIST changes: +FLUT1BLS5 INH; +IBAN150T6 PO; +INCR1INH IN; +IPRA0.00 INH; +SERT50TA29 PO
== END ==
LOC: M LABSMTC 12:19
PROVIDERS: ATTEND Anesthesiology
DX: Z01.812 Encounter for preprocedural laboratory examination (principal); Z20.828 Contact with and (suspected) exposure to other viral communicable diseases

== ENCOUNTER 2020-03-30 11:29 | Day surgery (SDC) | payer OTHER ==
[~2020-03-30] VITALS: Ht 149.9 cm; Wt 37.2 kg
[~2020-03-30 11:29] MED LIST changes: +LIDOCAINE 2% 100MG/5ML SDV (FOR ANES.) As Ordered ONE; +NS 1,000 ML IV ONE; +propofoL 200 MG/20 ML VIAL As Ordered ONE
[2020-03-30] MEDS ORDERED: fentaNYL 100 MCG/2 ML INJECTION (J3010) As Ordered ONE (11:54)
--- NOTE | 2020-03-30 12:11 | ROOR ---
Patient Name: Shamika Skaggs Procedure Date: 03/30/2020 11:48 AM Date of : 1960 Age: 59 Room: [facility] Gender: Female Note Status: Finalized Procedure: Upper Endoscopy + Biopsies Indications: Lower abdominal pain, Weight loss Providers: Isidro Bello MD Referring MD: Shiloh Mcduffie DO Requesting Provider: Medicines: Monitored Anesthesia Care Complications: No immediate complications. Procedure: Pre-Anesthesia Assessment: - The heart rate, respiratory rate, oxygen saturations, blood pressure, adequacy of pulmonary ventilation, and response to care were monitored throughout the procedure. The Endoscope was introduced through the mouth, and advanced to the second part of duodenum. The upper GI endoscopy was accomplished without difficulty. The patient tolerated the procedure well. Findings: The Z-line was regular and was found 35 cm from the incisors. Multiple biopsies were obtained with cold forceps for evaluation to rule out Ji's Esophagus randomly at the gastroesophageal junction. A small hiatal hernia was present. No other significant abnormalities were identified in a careful examination of the stomach. Biopsies were taken with a cold forceps in the gastric antrum for Helicobacter pylori testing. The exam of the duodenum was otherwise normal. Biopsies for histology were taken with a cold forceps in the first portion of the duodenum for evaluation of celiac disease. The exam was otherwise without abnormality. Impression: - Z-line regular, 35 cm from the incisors. - Small hiatal hernia. - The examination was otherwise normal. - Multiple biopsies were obtained at the gastroesophageal junction. - Biopsies were taken with a cold forceps for Helicobacter pylori testing. - Biopsies were taken with a cold forceps for evaluation of celiac disease. - The examination was otherwise normal. Recommendation: - Patient has a contact number available for emergencies. The signs and symptoms of potential delayed complications were discussed with the patient. Return to normal activities tomorrow. Written discharge instructions were provided to the patient. - High fiber diet. - Discharge patient to home. - Follow an antireflux regimen. - Continue present medications. - Await pathology results. - Telephone GI clinic for pathology results in 1 week. - Return to referring physician. - The findings and recommendations were discussed with the patient. Procedure Code(s): --- Professional --- 56455, Esophagogastroduodenoscopy, flexible, transoral; with biopsy, single or multiple Diagnosis Code(s): --- Professional --- K44.9, Diaphragmatic hernia without obstruction or gangrene R10.30, Lower abdominal pain, unspecified R63.4, Abnormal weight loss CPT copyright 2019 [employer]. All rights reserved. The codes documented in this report are preliminary and upon printed circuit board preassembler review may be revised to meet current compliance requirements. Isidro Bello MD Isidro Bello MD 03/30/2020 12:10:42 PM Electronically signed by Isidro Bello MD Number of Addenda: 0 Note Initiated On: 03/30/2020 11:48 AM Estimated Blood Loss: Estimated blood loss: none.
[2020-03-30] MEDS ORDERED: GLYCOPYRROLATE INJ 0.2 MG/ML 2 ML VIAL As Ordered ONE (12:19)
--- NOTE | 2020-03-30 12:27 | ROOR ---
Patient Name: Shamika Skaggs Procedure Date: 03/30/2020 11:49 AM Date of : 1960 Age: 59 Room: [facility] Gender: Female Note Status: Finalized Procedure: Total Colonoscopy to Cecum Indications: Change in bowel habits, Weight loss Providers: Isidro Bello MD Referring MD: Shiloh Mcduffie DO Requesting Provider: Medicines: Monitored Anesthesia Care Complications: No immediate complications. Procedure: Pre-Anesthesia Assessment: - The heart rate, respiratory rate, oxygen saturations, blood pressure, adequacy of pulmonary ventilation, and response to care were monitored throughout the procedure. The Colonoscope was introduced through the anus and advanced to the cecum, identified by appendiceal orifice and ileocecal valve. The colonoscopy was performed without difficulty. The patient tolerated the procedure well. The quality of the bowel preparation was excellent. Findings: The perianal and digital rectal examinations were normal. No other significant abnormalities were identified in a careful examination of the remainder of the colon. The exam was otherwise without abnormality on direct and retroflexion views. Impression: - The examination was otherwise normal on direct and retroflexion views. - No specimens collected. - The exam was otherwise normal to the cecum. Recommendation: - Patient has a contact number available for emergencies. The signs and symptoms of potential delayed complications were discussed with the patient. Return to normal activities tomorrow. Written discharge instructions were provided to the patient. - High fiber diet. - Discharge patient to home. - Continue present medications. - Repeat colonoscopy in 5 years for screening purposes. - Return to referring physician. - The findings and recommendations were discussed with the patient. Procedure Code(s): --- Professional --- 73441, Colonoscopy, flexible; diagnostic, including collection of specimen(s) by brushing or washing, when performed (separate procedure) Diagnosis Code(s): --- Professional --- R19.4, Change in bowel habit R63.4, Abnormal weight loss CPT copyright 2019 [place] [employer]. All rights reserved. The codes documented in this report are preliminary and upon rolloff driver review may be revised to meet current compliance requirements. Isidro Bello MD Isidro Bello MD 03/30/2020 12:27:02 PM Electronically signed by Isidro Bello MD Number of Addenda: 0 Note Initiated On: 03/30/2020 11:49 AM Estimated Blood Loss: Estimated blood loss: none.
[2020-03-30 13:00] VITALS: BP 127/69
== END 2020-03-30 13:21 | disposition home or self-care (01) ==
LOC: M OPP 11:29
PROVIDERS: ATTEND Internal Medicine Gastroenterology
DX: R19.4 Change in bowel habit (principal); R63.4 Abnormal weight loss; K44.9 Diaphragmatic hernia without obstruction or gangrene
CPT/HCPCS: 43239; 45378; 88305; J3010

== ENCOUNTER → 2021-01-18 | Outpatient (CLI) | payer OTHER ==
[~2021-01-18] MED LIST changes: -LIDOCAINE 2% 100MG/5ML SDV (FOR ANES.) As Ordered ONE; -NS 1,000 ML IV ONE; -propofoL 200 MG/20 ML VIAL As Ordered ONE
--- NOTE | 2021-01-19 09:12 | REP ---
INDICATION: SOLITARY PULM NODULE, NICOTINE DEPENDENCE. COMPARISON: CT chest without contrast, 01/08/2020. TECHNIQUE: Imaging protocol: Computed tomography of the chest without IV contrast. Contiguous 3 mm thick axial projection images were obtained through the chest. 2D sagittal and coronal reconstructions were performed. Radiation optimization: All CT scans at this facility use at least one of these dose optimization techniques: automated exposure control; mA and/or kV adjustment per patient size (includes targeted exams where dose is matched to clinical indication); or iterative reconstruction. FINDINGS: Lower neck: The thyroid gland is normal. There is no supraclavicular lymphadenopathy. Mediastinum: There are multiple not pathologically enlarged mediastinal lymph nodes. z Heart/thoracic aorta: The heart size is normal. There is no pericardial effusion. There is calcific vascular disease of the thoracic aorta and coronary arteries. Upper abdomen: There is calcific vascular disease of the visualized abdominal aorta. Thoracic esophagus: Normal. Chest wall and axilla: The breasts and soft tissues of the chest wall appear unremarkable. There is no axillary lymphadenopathy. There is mild multilevel degenerative disc disease of the thoracic and upper lumbar spine. There is mild levoscoliosis of the thoracic spine. Lung parenchyma: There is severe upper lobe predominant centrilobular emphysema. There is minimal pleural-parenchymal scarring in both lung apices. There is a pleuroparenchymal scar in the middle lobe the right lung, which appears to have progressed since the prior exam. There is a benign calcified granuloma in the lower lobe of the left lung. There are no noncalcified pulmonary nodules or masses. The suspicious nodule seen in the upper lobe of the left lung on the prior exam is no longer identified. There are no pleural effusions. IMPRESSION: 1. The suspicious soft tissue density in the upper lobe of the left lung seen on the most recent CT examination, is no longer identified. 2. There has been interval increase in size of the pleuroparenchymal scar in the middle lobe of the right lung, may be developing cicatricial atelectasis. 3. Severe emphysema. 4. Calcific vascular disease of the thoracoabdominal aorta and coronary arteries. 5. Reactive mediastinal lymph nodes. 6. Other findings as noted. <Electronically signed by Fortino Hannah > 01/19/21 [id number]
== END ==
LOC: M PLAIMG 14:54
PROVIDERS: ATTEND Internal Medicine Pulmonary Disease
DX: R91.1 Solitary pulmonary nodule (principal); F17.210 Nicotine dependence, cigarettes, uncomplicated

== ENCOUNTER → 2021-03-16 | Outpatient (REF) | payer OTHER ==
[2021-03-16 12:35] LABS: PERCENT SATURATION 26.2 % (13.2-45.0)
== END ==
LOC: M LAB REF 11:51
PROVIDERS: ATTEND Internal Medicine
DX: F33.1 Major depressive disorder, recurrent, moderate (principal); J44.9 Chronic obstructive pulmonary disease, unspecified; M81.0 Age-related osteoporosis without current pathological fracture

== ENCOUNTER 2021-03-31 08:06 | Outpatient (CLI) | payer OTHER ==
[~2021-03-31] VITALS: Ht 152.4 cm; Wt 38.0 kg
[~2021-03-31 08:06] MED LIST changes: +ALBUTEROL 90 MCG/ACT 8GM HFA INHALER INH PRN; +ALBUTEROL SULFATE 2.5 MG/0.5 ML INH NEB SOLN INH PRN; +BAMLANIVIMAB 700 MG, ETESEVIMAB 1,400 MG in NS 250 ML IV ONE; +EPINEPHrine INJ 1 MG/ML 1ML AMP IM PRN; +NS 1,000 ML IV SCH; +diphenhydrAMINE 50MG/ML VIAL (J1200) IV PRN; +methylPREDNISolone 125MG 2ML VIAL IV PRN
[2021-03-31 08:30] VITALS: BP 131/63
[2021-03-31 09:00] VITALS: BP 139/71
[2021-03-31 09:30] VITALS: BP 123/68
[2021-03-31 10:30] VITALS: BP 121/58
== END 2021-03-31 10:31 | disposition home or self-care (01) ==
LOC: M OPCLI4PR 08:06
PROVIDERS: ATTEND Internal Medicine
DX: U07.1 COVID-19 (principal); Z88.5 Allergy status to narcotic agent

== ENCOUNTER → 2021-12-20 | Outpatient (REF) | payer OTHER ==
[~2021-12-20] MED LIST changes: -ALBUTEROL 90 MCG/ACT 8GM HFA INHALER INH PRN; -ALBUTEROL SULFATE 2.5 MG/0.5 ML INH NEB SOLN INH PRN; -BAMLANIVIMAB 700 MG, ETESEVIMAB 1,400 MG in NS 250 ML IV ONE; -EPINEPHrine INJ 1 MG/ML 1ML AMP IM PRN; -NS 1,000 ML IV SCH; -diphenhydrAMINE 50MG/ML VIAL (J1200) IV PRN; -methylPREDNISolone 125MG 2ML VIAL IV PRN
== END ==
LOC: M LAB REF 12:49
PROVIDERS: ATTEND Internal Medicine Critical Care Medicine
DX: J44.1 Chronic obstructive pulmonary disease with (acute) exacerbation (principal)

== ENCOUNTER 2022-01-25 07:57 | Inpatient (IN) | payer OTHER ==
[~2022-01-25] VITALS: Ht 152.4 cm; Wt 34.7 kg
[~2022-01-25 07:57] MED LIST changes: -INCR1INH IN; +INCR1INH INH
[2022-01-25] MEDS ORDERED: TIOTROPIUM INHALER/CAPSULE (SPIRIVA) INH SCH (08:00)
[2022-01-25] MEDS ORDERED: methylPREDNISolone 125MG 2ML VIAL IV ONE (08:10)
[2022-01-25] MEDS ORDERED: COMBIVENT RESPIMAT 100-20MCG INHALER 4GM INH PRN (08:15)
[2022-01-25 09:11] LABS: VENOUS BASE EXCESS -2.3 (-2.0-2.0); VENOUS HCO3 24.1 MEQ/L (23.0-27.0); VENOUS O2 SATURATION 98.3 % (60.0-80.0); VENOUS PARTIAL PRESSURE O2 121.1 mmHg (30.0-50.0); VENOUS PH 7.327 UNITS (7.330-7.430); VENOUS STANDARD HCO3 22.6 MEQ/L; VENOUS TOTAL CO2 25.5 MEQ/L (24.0-28.0)
[2022-01-25 09:17] LABS: BASO % 0.2 % (0.0-1.0); EOS # 0.1 10^3/uL (0.0-0.5); EOS % 0.3 % (0.0-3.0); HEMATOCRIT 44.9 % (36.0-47.0); HEMOGLOBIN 14.4 g/dl (12.0-15.5); LYMPH % 6.3 % (24.0-44.0); MEAN CORPUSCULAR HEMOGLOBIN 29.3 pg (27.0-33.0); MEAN CORPUSCULAR HGB CONC 32.1 g/dl (32.0-36.5); MEAN CORPUSCULAR VOLUME 91.4 fl (80.0-96.0); MONO # 0.6 10^3/uL (0.0-0.8); MONO % 3.8 % (2.0-8.0); NEUTROPHILS # 14.6 10^3/uL (1.5-8.5); NEUTROPHILS % 88.9 % (36.0-66.0); PLATELET COUNT, AUTOMATED 241 10^3/uL (150-450); RED BLOOD COUNT 4.91 10^6/uL (4.00-5.40); WHITE BLOOD COUNT 16.4 10^3/uL (4.0-10.0)
[2022-01-25 09:56] LABS: ALBUMIN 3.3 GM/DL (3.2-5.2); ALT/SGPT 16 U/L (12-78); BILIRUBIN,DIRECT 0.1 MG/DL (0.0-0.2); BILIRUBIN,TOTAL 0.3 MG/DL (0.2-1.0); BLOOD UREA NITROGEN 14 MG/DL (7-18); CALCIUM LEVEL 8.4 MG/DL (8.5-10.1); CARBON DIOXIDE LEVEL 25 MEQ/L (21-32); CHLORIDE LEVEL 109 MEQ/L (98-107); CREATININE FOR GFR 0.41 MG/DL (0.55-1.30); GLOMERULAR FILTRATION RATE > 60.0 (>51); GLUCOSE, FASTING 147 MG/DL (70-100); POTASSIUM SERUM 3.5 MEQ/L (3.5-5.1); SODIUM LEVEL 140 MEQ/L (136-145); TOTAL PROTEIN 6.4 GM/DL (6.4-8.2)
[2022-01-25 10:17] LABS: NT-PRO BNP 145 PG/ML (<125)
[2022-01-25] MEDS ORDERED: ISOVUE-370 76% 100ML VIAL As Ordered ONE (11:04)
[2022-01-25] MEDS ORDERED: LEVALBUTEROL 1.25 MG/0.5 ML CONCENTRATE NEB NEB SCH (12:00)
[2022-01-25] MEDS ORDERED: cefTRIAXone SOD 1 GM in D5W MINI-BAG PLUS 50 ML IV ONE (12:10)
[2022-01-25] MEDS ORDERED: AZITHROMYCIN 250MG TABLET PO ONE (12:10)
[2022-01-25] MEDS ORDERED: ZOLO100T PO (12:58)
[2022-01-25] MEDS ORDERED: ALBU8.5H INH (12:58)
[2022-01-25] MEDS ORDERED: FLUT1BLS5 INH (12:58)
[2022-01-25] MEDS ORDERED: OMEP-173 PO (12:58)
[2022-01-25] MEDS ORDERED: HOME MED LIST COMPLETE! XX SCH (13:10)
[2022-01-25] MEDS ORDERED: ACETAMINOPHEN TAB 650MG DOSE (2X325MG) PO PRN (13:35)
[2022-01-25] MEDS ORDERED: LEVALBUTEROL 1.25 MG/0.5 ML CONCENTRATE NEB NEB PRN (13:35)
[2022-01-25] MEDS ORDERED: IPRATROPIUM 0.5MG/ALBUTEROL 2.5MG INH SOL UD 3ML (DUONEB) NEB PRN (14:05)
[2022-01-25] MEDS: IPRATROPIUM 0.5MG/ALBUTEROL 2.5MG INH SOL UD 3ML (DUONEB) NEB SCH ×2 (14:33→19:52)
[2022-01-25 14:44] LABS: INR 0.91; PROTHROMBIN TIME 12.4 SECONDS (12.5-14.5)
[2022-01-25] MEDS ORDERED: methylPREDNISolone 125MG 2ML VIAL IV SCH (17:00)
[2022-01-25] MEDS: DOXYCYCLINE HYCLATE 100MG TABLET PO SCH ×2 (17:45→21:01)
[2022-01-25 18:00] VITALS: BP 100/64
[2022-01-25] MEDS: OMEPRAZOLE 20MG CAP PO SCH (18:28)
[2022-01-25] MEDS: PIPERACILLIN/TAZOBACTAM SOD 3.375 GM in D5W MINI-BAG PLUS 50 ML IV SCH ×2 (18:28→23:37)
[2022-01-25] MEDS: ADVAIR HFA 230/21MCG INHALER INH SCH (19:52)
[2022-01-25 22:00] VITALS: BP 111/66
[2022-01-26] MEDS: IPRATROPIUM 0.5MG/ALBUTEROL 2.5MG INH SOL UD 3ML (DUONEB) NEB SCH ×4 (01:15→19:17)
[2022-01-26] MEDS: PIPERACILLIN/TAZOBACTAM SOD 3.375 GM in D5W MINI-BAG PLUS 50 ML IV SCH ×3 (05:43→18:11)
[2022-01-26 06:00] VITALS: BP 96/56
[2022-01-26 06:18] LABS: HEMATOCRIT 40.7 % (36.0-47.0); HEMOGLOBIN 12.7 g/dl (12.0-15.5); MEAN CORPUSCULAR HEMOGLOBIN 28.4 pg (27.0-33.0); MEAN CORPUSCULAR HGB CONC 31.2 g/dl (32.0-36.5); MEAN CORPUSCULAR VOLUME 91.1 fl (80.0-96.0); PLATELET COUNT, AUTOMATED 252 10^3/uL (150-450); RED BLOOD COUNT 4.47 10^6/uL (4.00-5.40); WHITE BLOOD COUNT 23.8 10^3/uL (4.0-10.0)
[2022-01-26 07:09] LABS: ALBUMIN 3.1 GM/DL (3.2-5.2); ALT/SGPT 13 U/L (12-78); BILIRUBIN,TOTAL 0.6 MG/DL (0.2-1.0); BLOOD UREA NITROGEN 14 MG/DL (7-18); CALCIUM LEVEL 8.4 MG/DL (8.5-10.1); CARBON DIOXIDE LEVEL 28 MEQ/L (21-32); CHLORIDE LEVEL 105 MEQ/L (98-107); CREATININE FOR GFR 0.58 MG/DL (0.55-1.30); GLOMERULAR FILTRATION RATE > 60.0 (>51); GLUCOSE, FASTING 83 MG/DL (70-100); POTASSIUM SERUM 3.8 MEQ/L (3.5-5.1); SODIUM LEVEL 140 MEQ/L (136-145); TOTAL PROTEIN 6.2 GM/DL (6.4-8.2)
[2022-01-26] MEDS: ADVAIR HFA 230/21MCG INHALER INH SCH ×2 (07:33→19:17)
[2022-01-26 08:42] VITALS: BP 107/62
[2022-01-26] MEDS: OMEPRAZOLE 20MG CAP PO SCH (10:05)
[2022-01-26] MEDS: methylPREDNISolone 40MG 1ML VIAL IV SCH (10:05)
[2022-01-26] MEDS: ENOXAPARIN 30MG/0.3ML SYRINGE (J1650 PER 10MG) SC SCH (10:05)
[2022-01-26] MEDS: SERTRALINE 100 MG TAB PO SCH (10:05)
[2022-01-26] MEDS: SERTRALINE HCL 50 MG TAB PO SCH (10:05)
[2022-01-26] MEDS ORDERED: cefTRIAXone SOD 1 GM in D5W MINI-BAG PLUS 50 ML IV SCH (13:00)
[2022-01-26] MEDS: AZITHROMYCIN INJ 500 MG, VIAL MATE ADAPTER 1 EACH in NS 250 ML IV SCH (13:51)
[2022-01-26 14:00] VITALS: BP 107/63
[2022-01-26 19:34] VITALS: BP 106/64
[2022-01-27] MEDS: PIPERACILLIN/TAZOBACTAM SOD 3.375 GM in D5W MINI-BAG PLUS 50 ML IV SCH ×3 (00:28→12:13)
[2022-01-27] MEDS: IPRATROPIUM 0.5MG/ALBUTEROL 2.5MG INH SOL UD 3ML (DUONEB) NEB SCH ×3 (01:32→13:20)
[2022-01-27 05:08] VITALS: BP 109/70
[2022-01-27 06:23] LABS: HEMATOCRIT 40.2 % (36.0-47.0); HEMOGLOBIN 12.3 g/dl (12.0-15.5); MEAN CORPUSCULAR HEMOGLOBIN 28.3 pg (27.0-33.0); MEAN CORPUSCULAR HGB CONC 30.6 g/dl (32.0-36.5); MEAN CORPUSCULAR VOLUME 92.4 fl (80.0-96.0); PLATELET COUNT, AUTOMATED 254 10^3/uL (150-450); RED BLOOD COUNT 4.35 10^6/uL (4.00-5.40); WHITE BLOOD COUNT 17.2 10^3/uL (4.0-10.0)
[2022-01-27] MEDS: ADVAIR HFA 230/21MCG INHALER INH SCH (07:43)
[2022-01-27 08:30] LABS: ALBUMIN 2.9 GM/DL (3.2-5.2); ALT/SGPT 18 U/L (12-78); BILIRUBIN,TOTAL 0.4 MG/DL (0.2-1.0); BLOOD UREA NITROGEN 13 MG/DL (7-18); CALCIUM LEVEL 8.2 MG/DL (8.5-10.1); CARBON DIOXIDE LEVEL 30 MEQ/L (21-32); CHLORIDE LEVEL 107 MEQ/L (98-107); CREATININE FOR GFR 0.58 MG/DL (0.55-1.30); GLOMERULAR FILTRATION RATE > 60.0 (>51); GLUCOSE, FASTING 85 MG/DL (70-100); POTASSIUM SERUM 3.6 MEQ/L (3.5-5.1); SODIUM LEVEL 142 MEQ/L (136-145); TOTAL PROTEIN 5.9 GM/DL (6.4-8.2)
[2022-01-27] MEDS: OMEPRAZOLE 20MG CAP PO SCH (08:33)
[2022-01-27] MEDS: SERTRALINE HCL 50 MG TAB PO SCH (08:33)
[2022-01-27] MEDS: methylPREDNISolone 40MG 1ML VIAL IV SCH (08:33)
[2022-01-27] MEDS: SERTRALINE 100 MG TAB PO SCH (08:33)
[2022-01-27] MEDS: ENOXAPARIN 30MG/0.3ML SYRINGE (J1650 PER 10MG) SC SCH (08:34)
[2022-01-27] MEDS ORDERED: AZIT500T5 PO (13:17)
[2022-01-27] MEDS ORDERED: PRED20TA PO ×2 (13:17→13:23)
[2022-01-27] MEDS ORDERED: CEFD300C41 PO ×2 (13:17→13:23)
[2022-01-27] MEDS ORDERED: METR-265 PO (13:21)
[2022-01-27] MEDS ORDERED: ALBU8.5H INH (13:23)
[2022-01-27] MEDS ORDERED: AZIT-12 PO (13:23)
[2022-01-27] MEDS: AZITHROMYCIN INJ 500 MG, VIAL MATE ADAPTER 1 EACH in NS 250 ML IV SCH (14:08)
[2022-01-27 16:10] LABS: MYCOPLASMA PNEUMONIAE IgG <100 U/mL (0-99); MYCOPLASMA PNEUMONIAE IgM <770 U/mL (0-769)
[2022-01-28 14:08] LABS: CHLAMYDIA PNEUMONIAE IgM <1:10 (Neg:<1:10)
[2022-01-29 16:07] LABS: BODY FLUID CULTURE Not indicated. (.); LEGIONELLA ANTIGEN URINE Negative (Negative); ORGANISM ID Not indicated. (.); SPECIMEN SOURCE Urine (.); URINE STREP PNEUMONIAE ANTIGEN Positive (Negative)
== END 2022-01-27 15:25 | disposition home health service (06) | DRG 140 ==
LOC: M ED 07:57 → M ED INP 07:58 → OBSVTOIN 14:10 → ENRESERV 16:48 → M MSPAV 18:15
PROVIDERS: ADMIT Internal Medicine; ATTEND Internal Medicine
DX: J44.1 Chronic obstructive pulmonary disease with (acute) exacerbation (principal); J18.9 Pneumonia, unspecified organism; Z99.81 Dependence on supplemental oxygen; F32.A Depression, unspecified; M81.0 Age-related osteoporosis without current pathological fracture; M25.512 Pain in left shoulder; K22.70 Barrett's esophagus without dysplasia; R91.8 Other nonspecific abnormal finding of lung field; J44.0 Chronic obstructive pulmonary disease with (acute) lower respiratory infection; M25.511 Pain in right shoulder; M54.2 Cervicalgia; K21.9 Gastro-esophageal reflux disease without esophagitis; F17.210 Nicotine dependence, cigarettes, uncomplicated; Z79.899 Other long term (current) drug therapy; Z88.5 Allergy status to narcotic agent; Z88.8 Allergy status to other drugs, medicaments and biological substances

== ENCOUNTER → 2022-01-31 | Outpatient (REF) | payer OTHER ==
[~2022-01-31] MED LIST changes: +ALBU8.5H INH; +AZIT-12 PO; +AZIT500T5 PO; +CEFD300C41 PO; +METR-265 PO; +OMEP-173 PO; +ZOLO100T PO
== END ==
LOC: M LAB REF 16:05
PROVIDERS: ATTEND Internal Medicine
DX: M25.50 Pain in unspecified joint (principal)

== ENCOUNTER → 2022-03-04 | Outpatient (CLI) | payer OTHER | LOC: M PLAIMG 11:16 | PROVIDERS: ATTEND Internal Medicine Critical Care Medicine | DX: R91.8 Other nonspecific abnormal finding of lung field (principal); J98.11 Atelectasis; J43.9 Emphysema, unspecified; J47.9 Bronchiectasis, uncomplicated; I70.0 Atherosclerosis of aorta ==

== ENCOUNTER → 2022-03-16 | Outpatient (CLI) | payer OTHER ==
[~2022-03-16] MED LIST changes: +ISOVUE-370 76% 100ML VIAL As Ordered ONE
== END ==
LOC: M RAD 13:06
PROVIDERS: ATTEND Internal Medicine
DX: R59.0 Localized enlarged lymph nodes (principal)

== ENCOUNTER 2022-07-12 12:58 | Day surgery (SDC) | payer OTHER ==
[~2022-07-12] VITALS: Ht 149.9 cm; Wt 41.3 kg
[~2022-07-12 12:58] MED LIST changes: -ISOVUE-370 76% 100ML VIAL As Ordered ONE; +NICO21DI38 TD
[2022-07-12] MEDS ORDERED: OXYMETAZOLINE 0.05% NASAL SPRAY (AFRIN) As Ordered ONE (14:16)
[2022-07-12] MEDS ORDERED: fentaNYL 100 MCG/2 ML INJECTION As Ordered ONE (14:38)
[2022-07-12] MEDS ORDERED: MIDAZOLAM INJ 2MG/2ML VIAL As Ordered ONE (14:38)
[2022-07-12] MEDS ORDERED: propofoL 200 MG/20 ML VIAL As Ordered ONE (14:44)
[2022-07-12] MEDS ORDERED: ROCURONIUM BROMIDE 50MG/5ML VIAL As Ordered ONE (14:44)
[2022-07-12] MEDS ORDERED: LIDOCAINE 2% 100MG/5ML SDV (FOR ANES.) As Ordered ONE (14:44)
[2022-07-12] MEDS ORDERED: ONDANSETRON 4MG 2ML VIAL As Ordered ONE (14:44)
[2022-07-12] MEDS ORDERED: SUGAMMADEX SODIUM 500 MG/5 ML VIAL (BRIDION) As Ordered ONE (15:23)
[2022-07-12] MEDS ORDERED: fentaNYL 100 MCG/2 ML INJECTION IV PRN (15:35)
[2022-07-12] MEDS ORDERED: LR 1,000 ML IV SCH ×3 (15:35→15:55)
[2022-07-12] MEDS ORDERED: HYDROMORPHONE HCL 0.5 MG/ 0.5 ML SYRINGE IV PRN (15:35)
[2022-07-12] MEDS ORDERED: oxyCODONE 5MG TAB PO PRN (15:35)
[2022-07-12] MEDS ORDERED: ONDANSETRON 4MG 2ML VIAL IV PRN ×2 (15:35→15:55)
[2022-07-12] MEDS ORDERED: ePHEDrine SULFATE 25 MG/5 ML(5MG/ML) SYRINGE As Ordered ONE (15:40)
[2022-07-12] MEDS ORDERED: PHENYLephrine 500MCG 5ML (100MCG/ML) SYRINGE As Ordered ONE (15:40)
[2022-07-12 17:23] VITALS: BP 112/66
== END 2022-07-12 17:41 | disposition home or self-care (01) ==
LOC: M SDC 12:58
PROVIDERS: ATTEND Otolaryngology
DX: J38.3 Other diseases of vocal cords (principal); K22.70 Barrett's esophagus without dysplasia; M54.9 Dorsalgia, unspecified; F41.9 Anxiety disorder, unspecified; F32.A Depression, unspecified; J44.9 Chronic obstructive pulmonary disease, unspecified; R06.83 Snoring; Z87.891 Personal history of nicotine dependence; Z88.5 Allergy status to narcotic agent; Z88.8 Allergy status to other drugs, medicaments and biological substances; Z79.899 Other long term (current) drug therapy; Z79.51 Long term (current) use of inhaled steroids
CPT/HCPCS: 31536; 88305; J1100; J2250; J2370; J2405; J3010

== ENCOUNTER 2022-09-18 18:05 | Inpatient (IN) | payer OTHER ==
[~2022-09-18] VITALS: Ht 149.9 cm; Wt 41.2 kg
[2022-09-18 18:53] LABS: BASO % 0.4 % (0.0-1.0); HEMATOCRIT 44.4 % (36.0-47.0); HEMOGLOBIN 13.8 g/dl (12.0-15.5); LYMPH # 0.5 10^3/uL (1.5-5.0); LYMPH % 7.5 % (24.0-44.0); MEAN CORPUSCULAR HGB CONC 31.1 g/dl (32.0-36.5); MEAN CORPUSCULAR VOLUME 90.2 fl (80.0-96.0); MONO # 0.4 10^3/uL (0.0-0.8); NEUTROPHILS # 5.7 10^3/uL (1.5-8.5); NEUTROPHILS % 85.7 % (36.0-66.0); PLATELET COUNT, AUTOMATED 179 10^3/uL (150-450); RED BLOOD COUNT 4.92 10^6/uL (4.00-5.40); WHITE BLOOD COUNT 6.7 10^3/uL (4.0-10.0)
[2022-09-18 19:24] LABS: CK-MB VALUE MASS < 1.0 NG/ML (<3.6)
[2022-09-18 19:25] LABS: ALBUMIN 3.6 G/DL (3.2-5.2); ALKALINE PHOSPHATASE 69 U/L (46-116); ALT/SGPT 12 U/L (7.0-40); AST/SGOT 11 U/L (<34); BILIRUBIN,DIRECT 0.1 MG/DL (<0.4); BILIRUBIN,TOTAL 0.3 MG/DL (0.3-1.2); BLOOD UREA NITROGEN 9 MG/DL (9-23); CALCIUM LEVEL 8.1 MG/DL (8.5-10.1); CARBON DIOXIDE LEVEL 27 MMOL/L (20-31); CHLORIDE LEVEL 105 MMOL/L (98-107); CPK CREATINE PHOSPHOKINASE 70 U/L (34-145); CPK CREATINE PHOSPHOKINASE 71 U/L (34-145); CREATININE FOR GFR 0.56 MG/DL (0.55-1.30); GLOMERULAR FILTRATION RATE > 60.0 (>51); GLUCOSE, FASTING 113 MG/DL (60-100); MB/CK RELATIVE INDEX 1.42 (< OR =4); SODIUM LEVEL 138 MMOL/L (136-145); TOTAL PROTEIN 6.6 G/DL (5.7-8.2)
[2022-09-18 19:27] LABS: THYROXINE (T4) 7.5 UG/DL (4.5-10.9)
[2022-09-18 19:28] LABS: THYROID STIMULATING HORMONE 1.339 uIU/ML (0.55-4.78)
[2022-09-18] MEDS: ADVAIR HFA 115/21MCG INHALER INH SCH (20:00)
[2022-09-18] MEDS ORDERED: ISOVUE-370 76% 100ML VIAL As Ordered ONE (20:38)
[2022-09-18] MEDS ORDERED: HOME MED LIST COMPLETE! XX SCH (20:40)
[2022-09-18] MEDS: methylPREDNISolone 40MG 1ML VIAL IV SCH (20:57)
[2022-09-18] MEDS: guaiFENesin ER 600 MG TAB PO SCH ×2 (20:57→21:00)
[2022-09-18] MEDS: ACETAMINOPHEN TAB 650MG DOSE (2X325MG) PO PRN (20:57)
[2022-09-18 22:00] VITALS: BP 121/78; TEMP 98.1; O2SAT 96
[2022-09-19] MEDS: IPRATROPIUM 0.5MG/ALBUTEROL 2.5MG INH SOL UD 3ML (DUONEB) NEB SCH ×2 (01:57→07:31)
[2022-09-19 06:00] VITALS: BP 109/71; TEMP 99; O2SAT 92
[2022-09-19 06:26] LABS: MEAN CORPUSCULAR HEMOGLOBIN 28.2 pg (27.0-33.0); MEAN CORPUSCULAR HGB CONC 31.8 g/dl (32.0-36.5); MEAN CORPUSCULAR VOLUME 88.7 fl (80.0-96.0); PLATELET COUNT, AUTOMATED 198 10^3/uL (150-450); RED BLOOD COUNT 4.96 10^6/uL (4.00-5.40); WHITE BLOOD COUNT 6.1 10^3/uL (4.0-10.0)
[2022-09-19 06:53] LABS: BLOOD UREA NITROGEN 12 MG/DL (9-23); CALCIUM LEVEL 8.5 MG/DL (8.5-10.1); CARBON DIOXIDE LEVEL 26 MMOL/L (20-31); CHLORIDE LEVEL 103 MMOL/L (98-107); GLOMERULAR FILTRATION RATE > 60.0 (>51); GLUCOSE, FASTING 115 MG/DL (60-100); MAGNESIUM LEVEL 1.8 MG/DL (1.8-2.4); POTASSIUM SERUM 4.4 MMOL/L (3.5-5.1); SODIUM LEVEL 137 MMOL/L (136-145)
[2022-09-19 06:58] LABS: PROCALCITONIN <0.04 ng/ml
[2022-09-19] MEDS: TIOTROPIUM INHALER/CAPSULE (SPIRIVA) INH SCH (07:30)
[2022-09-19] MEDS: ADVAIR HFA 115/21MCG INHALER INH SCH ×2 (07:30→19:50)
[2022-09-19] MEDS: ALBUTEROL SULFATE 2.5MG/0.5ML INH NEB SOLN NEB SCH ×4 (08:00→19:49)
[2022-09-19] MEDS: SERTRALINE 100 MG TAB PO SCH (08:19)
[2022-09-19] MEDS: SERTRALINE HCL 50 MG TAB PO SCH (08:19)
[2022-09-19] MEDS: ENOXAPARIN 40MG/0.4ML SYRINGE (J1650 PER 10MG) SC SCH (08:19)
[2022-09-19] MEDS: methylPREDNISolone 40MG 1ML VIAL IV SCH ×2 (08:19→20:11)
[2022-09-19] MEDS: OMEPRAZOLE 20MG CAP PO SCH (08:20)
[2022-09-19] MEDS: ACETAMINOPHEN TAB 650MG DOSE (2X325MG) PO PRN (08:20)
[2022-09-19] MEDS: guaiFENesin ER 600 MG TAB PO SCH (08:21)
[2022-09-19] MEDS: IPRATROPIUM 0.5MG/ALBUTEROL 2.5MG INH SOL UD 3ML (DUONEB) NEB PRN ×3 (11:29→19:48)
[2022-09-19 14:00] VITALS: BP 104/66; TEMP 97.7; O2SAT 92
[2022-09-19 19:59] VITALS: BP 126/82; TEMP 97.9; O2SAT 95
[2022-09-20] MEDS: ALBUTEROL SULFATE 2.5MG/0.5ML INH NEB SOLN NEB SCH ×3 (00:59→07:06)
[2022-09-20 04:46] VITALS: BP 101/62; TEMP 97.3; O2SAT 99
[2022-09-20 06:09] LABS: BASO % 0.2 % (0.0-1.0); HEMATOCRIT 42.3 % (36.0-47.0); HEMOGLOBIN 13.6 g/dl (12.0-15.5); LYMPH # 1.4 10^3/uL (1.5-5.0); LYMPH % 15.8 % (24.0-44.0); MEAN CORPUSCULAR HEMOGLOBIN 28.5 pg (27.0-33.0); MEAN CORPUSCULAR HGB CONC 32.2 g/dl (32.0-36.5); MEAN CORPUSCULAR VOLUME 88.7 fl (80.0-96.0); MONO # 0.5 10^3/uL (0.0-0.8); MONO % 5.7 % (2.0-8.0); NEUTROPHILS % 77.9 % (36.0-66.0); PLATELET COUNT, AUTOMATED 196 10^3/uL (150-450); RED BLOOD COUNT 4.77 10^6/uL (4.00-5.40)
[2022-09-20 06:24] LABS: BLOOD UREA NITROGEN 15 MG/DL (9-23); CALCIUM LEVEL 8.2 MG/DL (8.5-10.1); CARBON DIOXIDE LEVEL 29 MMOL/L (20-31); CHLORIDE LEVEL 105 MMOL/L (98-107); CREATININE FOR GFR 0.53 MG/DL (0.55-1.30); GLOMERULAR FILTRATION RATE > 60.0 (>51); GLUCOSE, FASTING 125 MG/DL (60-100); POTASSIUM SERUM 4.1 MMOL/L (3.5-5.1); SODIUM LEVEL 139 MMOL/L (136-145)
[2022-09-20] MEDS: ADVAIR HFA 115/21MCG INHALER INH SCH (07:03)
[2022-09-20] MEDS: TIOTROPIUM INHALER/CAPSULE (SPIRIVA) INH SCH (07:03)
[2022-09-20] MEDS: methylPREDNISolone 40MG 1ML VIAL IV SCH (08:45)
[2022-09-20] MEDS: SERTRALINE HCL 50 MG TAB PO SCH (08:45)
[2022-09-20] MEDS: SERTRALINE 100 MG TAB PO SCH (08:45)
[2022-09-20] MEDS: ENOXAPARIN 40MG/0.4ML SYRINGE (J1650 PER 10MG) SC SCH (08:45)
[2022-09-20] MEDS: OMEPRAZOLE 20MG CAP PO SCH (08:45)
[2022-09-20] MEDS ORDERED: PRED10TA2 PO (09:35)
[2022-09-20] MEDS ORDERED: AZIT500T5 PO (09:36)
[2022-09-20] MEDS ORDERED: AZITHROMYCIN 250MG TABLET PO ONE (09:40)
== END 2022-09-20 12:45 | disposition home health service (06) | DRG 140 ==
LOC: M ED 18:05 → M ED INP 20:30 → M MS5PR 22:01
PROVIDERS: ADMIT Internal Medicine; ATTEND Internal Medicine Nephrology
DX: J44.1 Chronic obstructive pulmonary disease with (acute) exacerbation (principal); J96.11 Chronic respiratory failure with hypoxia; E46 Unspecified protein-calorie malnutrition; R64 Cachexia; Z99.81 Dependence on supplemental oxygen; K21.9 Gastro-esophageal reflux disease without esophagitis; F32.A Depression, unspecified; K22.70 Barrett's esophagus without dysplasia; F17.200 Nicotine dependence, unspecified, uncomplicated; M81.0 Age-related osteoporosis without current pathological fracture; J38.1 Polyp of vocal cord and larynx; B34.8 Other viral infections of unspecified site; F41.9 Anxiety disorder, unspecified; Z88.8 Allergy status to other drugs, medicaments and biological substances; Z88.5 Allergy status to narcotic agent; Z79.899 Other long term (current) drug therapy

== ENCOUNTER 2023-05-03 08:49 | Observation (INO) | payer MEDICAID, OTHER ==
[~2023-05-03] VITALS: Ht 152.4 cm; Wt 35.6 kg
[~2023-05-03 08:49] MED LIST changes: +CEFD1CAP9 PO; -CEFD300C41 PO
[2023-05-03 09:36] LABS: BASO % 0.2 % (0.0-1.0); HEMATOCRIT 47.2 % (36.0-47.0); HEMOGLOBIN 14.9 g/dl (12.0-15.5); LYMPH # 1.4 10^3/uL (1.5-5.0); LYMPH % 7.7 % (24.0-44.0); MEAN CORPUSCULAR HEMOGLOBIN 29.3 pg (27.0-33.0); MEAN CORPUSCULAR HGB CONC 31.6 g/dl (32.0-36.5); MEAN CORPUSCULAR VOLUME 92.7 fl (80.0-96.0); MONO % 5.8 % (2.0-8.0); NEUTROPHILS # 15.2 10^3/uL (1.5-8.5); NEUTROPHILS % 85.9 % (36.0-66.0); PLATELET COUNT, AUTOMATED 255 10^3/uL (150-450); RED BLOOD COUNT 5.09 10^6/uL (4.00-5.40); WHITE BLOOD COUNT 17.7 10^3/uL (4.0-10.0)
[2023-05-03 09:45] LABS: ABG BASE EXCESS -2.9 (-2.0-2.0); ABG O2 SATURATION 91.2 % (95.0-99.0); ABG PARTIAL PRESSURE CO2 43.8 mmHg (35.0-45.0); ABG PARTIAL PRESSURE O2 57.7 mmHg (75.0-100.0); ABG TOTAL CO2 24.3 MMOL/L (23.0-31.0); ABG pH (ARTERIAL) 7.338 UNITS (7.350-7.450)
[2023-05-03 10:09] LABS: ALKALINE PHOSPHATASE 79 U/L (46-116); ALT/SGPT 11 U/L (7.0-40); AST/SGOT 18 U/L (<34); BILIRUBIN,DIRECT 0.2 MG/DL (<0.4); BILIRUBIN,TOTAL 0.8 MG/DL (0.3-1.2); BLOOD UREA NITROGEN 10 MG/DL (9-23); CALCIUM LEVEL 9.5 MG/DL (8.3-10.6); CARBON DIOXIDE LEVEL 29 MMOL/L (20-31); CHLORIDE LEVEL 102 MMOL/L (98-107); CREATININE FOR GFR 0.43 MG/DL (0.55-1.30); GLOMERULAR FILTRATION RATE > 60.0 (>45); GLUCOSE, FASTING 149 MG/DL (74-106); SODIUM LEVEL 138 MMOL/L (136-145); TOTAL PROTEIN 7.8 G/DL (5.7-8.2)
[2023-05-03] MEDS ORDERED: PRED10TA2 PO (11:30)
[2023-05-03] MEDS ORDERED: ISOVUE-370 76% 100ML VIAL As Ordered ONE (12:36)
[2023-05-03] MEDS: dexAMETHasone 20MG/5ML VIAL IV ONE (14:05)
[2023-05-03] MEDS ORDERED: ACET-897 PO (14:19)
[2023-05-03] MEDS ORDERED: HOME MED LIST COMPLETE! XX SCH (14:20)
[2023-05-03] MEDS: IPRATROPIUM 0.5MG/ALBUTEROL 2.5MG INH SOL UD 3ML (DUONEB) NEB ONE (14:23)
[2023-05-03] MEDS ORDERED: IPRATROPIUM 0.5MG/ALBUTEROL 2.5MG INH SOL UD 3ML (DUONEB) NEB PRN (15:35)
[2023-05-03 16:04] LABS: PROCALCITONIN <0.04 ng/ml
[2023-05-03 16:30] VITALS: BP 120/73; TEMP 97.7; O2SAT 96
[2023-05-03] MEDS: cefTRIAXone SOD 1 GM in D5W MINI-BAG PLUS 50 ML IV SCH (16:45)
[2023-05-03] MEDS: AZITHROMYCIN 250MG TABLET PO SCH (16:46)
[2023-05-03] MEDS: NICOTINE 21MG/24HR 1 EA TRANSDERMAL TD SCH (17:12)
[2023-05-03] MEDS ORDERED: ONDANSETRON 4MG TAB PO PRN (17:50)
[2023-05-03] MEDS: IPRATROPIUM 0.5MG/ALBUTEROL 2.5MG INH SOL UD 3ML (DUONEB) NEB SCH (19:07)
[2023-05-03] MEDS: SYMBICORT 80/4.5MCG INHALER 6GM INH SCH (19:08)
[2023-05-03 22:37] VITALS: BP 118/76; TEMP 98.6; O2SAT 90
[2023-05-04] MEDS ORDERED: ACETAMINOPHEN TAB 650MG DOSE (2X325MG) PO ONE (03:00)
[2023-05-04 06:41] LABS: HEMATOCRIT 42.5 % (36.0-47.0); HEMOGLOBIN 13.7 g/dl (12.0-15.5); MEAN CORPUSCULAR HEMOGLOBIN 29.4 pg (27.0-33.0); MEAN CORPUSCULAR HGB CONC 32.2 g/dl (32.0-36.5); MEAN CORPUSCULAR VOLUME 91.2 fl (80.0-96.0); PLATELET COUNT, AUTOMATED 224 10^3/uL (150-450); RED BLOOD COUNT 4.66 10^6/uL (4.00-5.40); WHITE BLOOD COUNT 15.6 10^3/uL (4.0-10.0)
[2023-05-04 07:04] LABS: BLOOD UREA NITROGEN 13 MG/DL (9-23); CALCIUM LEVEL 9.1 MG/DL (8.3-10.6); CARBON DIOXIDE LEVEL 29 MMOL/L (20-31); CHLORIDE LEVEL 104 MMOL/L (98-107); CREATININE FOR GFR 0.47 MG/DL (0.55-1.30); GLOMERULAR FILTRATION RATE > 60.0 (>45); GLUCOSE, FASTING 80 MG/DL (74-106); POTASSIUM SERUM 3.9 MMOL/L (3.5-5.1); SODIUM LEVEL 141 MMOL/L (136-145)
[2023-05-04] MEDS: TIOTROPIUM INHALER/CAPSULE (SPIRIVA) INH SCH (07:08)
[2023-05-04 07:18] VITALS: BP 101/67; TEMP 97.8; O2SAT 97
[2023-05-04] MEDS ORDERED: SERTRALINE HCL 50 MG TAB PO SCH (09:00)
[2023-05-04] MEDS ORDERED: SERTRALINE 100 MG TAB PO SCH (09:00)
[2023-05-04] MEDS: OMEPRAZOLE 20MG CAP PO SCH (09:19)
[2023-05-04] MEDS: predniSONE 20 MG TAB PO SCH (09:19)
[2023-05-04] MEDS: SERTRALINE HCL 50 MG TAB PO SCH (09:20)
[2023-05-04] MEDS: ENOXAPARIN 40MG/0.4ML SYRINGE (J1650 PER 10MG) SC SCH (09:20)
[2023-05-04] MEDS ORDERED: PRED10TA2 PO (10:04)
[2023-05-04] MEDS ORDERED: AZIT500T5 PO (10:56)
[2023-05-04] MEDS ORDERED: CEFD300CAP PO (10:56)
[2023-05-12 15:08] LABS: BODY FLUID CULTURE Not indicated. (.); LEGIONELLA ANTIGEN URINE Negative (Negative); ORGANISM ID Not indicated. (.); SPECIMEN SOURCE Urine (.); URINE STREP PNEUMONIAE ANTIGEN Negative (Negative)
== END 2023-05-04 15:20 | disposition home or self-care (01) ==
LOC: M ED 08:49 → M ED INP 08:50 → M MS5PR 16:25
PROVIDERS: ADMIT Internal Medicine; ATTEND Internal Medicine
DX: J44.1 Chronic obstructive pulmonary disease with (acute) exacerbation (principal); B96.3 Hemophilus influenzae [H. influenzae] as the cause of diseases classified elsewhere; B95.61 Methicillin susceptible Staphylococcus aureus infection as the cause of diseases classified elsewhere; J96.11 Chronic respiratory failure with hypoxia; Z99.81 Dependence on supplemental oxygen; J43.9 Emphysema, unspecified; J98.19 Other pulmonary collapse; K21.9 Gastro-esophageal reflux disease without esophagitis; F39 Unspecified mood [affective] disorder; M50.31 Other cervical disc degeneration, high cervical region; M50.320 Other cervical disc degeneration, mid-cervical region, unspecified level; M50.33 Other cervical disc degeneration, cervicothoracic region; M47.812 Spondylosis without myelopathy or radiculopathy, cervical region; M25.519 Pain in unspecified shoulder; M81.0 Age-related osteoporosis without current pathological fracture; D72.829 Elevated white blood cell count, unspecified; R68.83 Chills (without fever); F17.210 Nicotine dependence, cigarettes, uncomplicated; Z88.5 Allergy status to narcotic agent; Z88.8 Allergy status to other drugs, medicaments and biological substances; Z79.899 Other long term (current) drug therapy; Z79.51 Long term (current) use of inhaled steroids
CPT/HCPCS: 71045; 71275; 72125; 80048; 80076; 82803; 83605; 84145; 85025; 85027; 87070; 87077; 87185; 87186; 87205; 87449; 87486; 87581; 87633; 87641; 87798; 87899; 93005; 93041; 94640; 94760; 96372; 96374; 96375; 99285; J0696; J1100; J1650; J7512; Q9967

== ENCOUNTER → 2023-08-17 | Outpatient (CLI) | payer OTHER ==
[~2023-08-17] MED LIST changes: +ACET-897 PO; +CEFD300CAP PO
== END ==
LOC: M WUC 11:31
PROVIDERS: ATTEND Internal Medicine
DX: R05.9 Cough, unspecified (principal)

== ENCOUNTER → 2023-08-17 | Outpatient (REF) | payer OTHER ==
[2023-08-17 14:16] LABS: RSV AMPLIFICATION NEGATIVE (NEGATIVE)
== END ==
LOC: M LAB REF 13:12
PROVIDERS: ATTEND Internal Medicine
DX: R06.2 Wheezing (principal)

== ENCOUNTER → 2023-12-05 | Outpatient (CLI) | payer OTHER | LOC: M PLAIMG 12:30 | PROVIDERS: ATTEND Internal Medicine Critical Care Medicine | DX: R91.8 Other nonspecific abnormal finding of lung field (principal) ==

== ENCOUNTER → 2024-01-01 | Outpatient (CLI) | payer OTHER | LOC: M RAD 12:42 | PROVIDERS: ATTEND Internal Medicine Critical Care Medicine | DX: J44.9 Chronic obstructive pulmonary disease, unspecified (principal) ==

== ENCOUNTER 2024-02-06 06:47 | Day surgery (SDC) | payer OTHER ==
[~2024-02-06] VITALS: Ht 149.9 cm; Wt 42.2 kg
[~2024-02-06 06:47] MED LIST changes: +FLUT1BLS8; +IBAN150T10; +IBAN150T10 PO; -IBAN150T6; -IBAN150T6 PO; +NS 250 ML IV ONE
[2024-02-06] MEDS ORDERED: dexmedeTOMIDine (4MCG/ML)200MCG/50ML BTL (PRECEDEX) As Ordered ONE (07:42)
[2024-02-06] MEDS ORDERED: propofoL 500 MG/50 ML VIAL As Ordered ONE (08:08)
[2024-02-06 08:14] VITALS: BP 107/57; TEMP 97.5; O2SAT 98
== END 2024-02-06 08:17 | disposition home or self-care (01) ==
LOC: M OPP 06:47
PROVIDERS: ATTEND Surgery
DX: K22.70 Barrett's esophagus without dysplasia (principal); R13.10 Dysphagia, unspecified; K44.9 Diaphragmatic hernia without obstruction or gangrene; K21.9 Gastro-esophageal reflux disease without esophagitis; M19.90 Unspecified osteoarthritis, unspecified site; F41.9 Anxiety disorder, unspecified; F32.A Depression, unspecified; J44.9 Chronic obstructive pulmonary disease, unspecified; Z87.891 Personal history of nicotine dependence; Z88.5 Allergy status to narcotic agent; Z88.8 Allergy status to other drugs, medicaments and biological substances; Z79.51 Long term (current) use of inhaled steroids; Z79.899 Other long term (current) drug therapy; Z99.81 Dependence on supplemental oxygen

== ENCOUNTER → 2024-04-01 | Outpatient (CLI) | payer OTHER ==
[~2024-04-01] MED LIST changes: -ADV250INH INH; +ADVA1AER9 INH; +BARIUM SULFATE 700 MG TABLET (E-Z-DISK) As Ordered ONE; +E-Z-GAS II EFFERVESCENT PACKET (SODIUM BICARB./CITRIC ACID/SIMETHICONE) As Ordered ONE; +E-Z-HD 98% w/w 340GM SUSP BTL As Ordered ONE; +E-Z-PAQUE 96% w/w SUSP 176GM BTL As Ordered ONE; -NS 250 ML IV ONE
== END ==
LOC: M RAD 07:45
PROVIDERS: ATTEND Physician Assistant
DX: R13.10 Dysphagia, unspecified (principal); K44.9 Diaphragmatic hernia without obstruction or gangrene

== ENCOUNTER → 2025-01-02 | Outpatient (CLI) | payer MEDICARE ==
[~2025-01-02] MED LIST changes: -BARIUM SULFATE 700 MG TABLET (E-Z-DISK) As Ordered ONE; -E-Z-GAS II EFFERVESCENT PACKET (SODIUM BICARB./CITRIC ACID/SIMETHICONE) As Ordered ONE; -E-Z-HD 98% w/w 340GM SUSP BTL As Ordered ONE; -E-Z-PAQUE 96% w/w SUSP 176GM BTL As Ordered ONE
== END ==
LOC: M WHC 14:07
PROVIDERS: ATTEND Internal Medicine
DX: Z12.31 Encounter for screening mammogram for malignant neoplasm of breast (principal); R92.333 Mammographic heterogeneous density, bilateral breasts

== ENCOUNTER → 2025-02-12 | Outpatient (CLI) | payer MEDICARE | LOC: M RAD 14:45 | PROVIDERS: ATTEND Internal Medicine Critical Care Medicine | DX: Z87.891 Personal history of nicotine dependence (principal) ==